=== PATIENT | male | born 1985 | race Caucasian/White ===

== ENCOUNTER 2024-04-22 17:56 | Emergency (ER) | payer SELFPAY ==
--- NOTE | ~2024-04-22 | XR_ITS ---
HISTORY: right sided rib pain, cough COMPARISON: None TECHNIQUE: 3 views of the right ribs were performed along with a PA and lateral examination of the ch est FINDINGS: The cardiomediastinal silhouette is unremarkable. The lungs are clear. No acute displaced fracture is appreciated. Bone mineralization is age-appropriate. IMPRESSION: No acute displaced right-sided rib fracture is detected. The lungs are clear Reviewed, dictated and finalized at location A. L HARDENER
--- OUTSIDE RECORDS SUMMARY | 2024-04-22 17:59 | XMS_ITS | Clinical Summary ---
Author Organization [facility] Address Formerly [facility] [place] [address] Care Team Providers Care Urology Nurse Name Role Phone Unavailable Primary Care Provider Unavailabl e Social History Tobacco Use Types Packs/Day Years Used Date Smoking Tobacco: Never Assessed Sex and Gender Information Value Date Recorded Sex Assigned at Not on file Legal Sex Male 7:26 AM CDT Gender Identity Not on file Sexual Orientation Not on file Plan of Treatment Health Maintenance Due Date Last Done Comments Annual Physical 1989 Hepatitis C 02/12/2004 DTaP, Tdap and Td Vaccines ( 1 - Tdap) 2005 Hepatitis B Vaccines (1 of 3 - 19+ 3-dose series) 2005 COVID-19 Vaccine (2023-2 5 season) 2023 Influenza Adult (#1) 2023 HPV Vaccines Aged Out No longer eligi ble based on patient's age to complete this topic Meningococcal B Vaccine Aged Out No l onger eligible based on patient's age to complete this topic Meningococcal Vaccine Aged Out No kelby dayana eligible based on patient's age to complete this topic Pneumococcal Vaccine: Pediat rics (0 to 5 Years) and At-Risk Patients (6 to 64 Years) Aged Out No longer eligible b ased on patient's age to complete this topic RSV Immunizations Under 20 Months Aged Out No longer eligible based on patient's age to complete this topic
--- OUTSIDE RECORDS SUMMARY | 2024-04-22 17:59 | XMS_ITS | Data Portability ---
Author Organization [place] - [facility] [employer], Main Office Address [address] [place] [address] Care Team Providers Care Circuitry Negative Inspector Name Role Phone KIMMIE LEVYA Pulmonary Function Technician Assessment Encounter Date Assessment Date Assessment LastModified by Organization Details LastModified Time 11/23/2023 11/23/2023 Assessment: Persistent early REM onset Mod OSAHS, AHI = 17 (+) LUCAS PLMD B12 deficiency CKD Plan: The following were reviewed and explained to the patient: Chest 1 view 06/09/23 no abnormality [facility] ED note 06/09/23 exertional chest pain and dyspnea, aspirin and nebulization did not help, O2 sat on RA 91-98%, discharged on prednisone and albuterol HFA Dr[facility] note 06/19/23 Claritin and Medrol pack [facility] hospitalization 06/25/23 - 06/26/23 observation for (+) metapneumovirus & hypoxemia Chest CT 06/25/23 no P. E., (+) bronchial wall thickening 2-D echocardiogram 06/25/23 mild MD, EF 64% Lab data 07/18/23 (+) LUCAS Esophagram 07/12/23 hiatal hernia, distal esophageal dilatation PFT 07/18/23 nl FEV1/FVC, FEV1 4.04 L (113%), BD 70 mL = 2%, TLC 6.25 L (103%), RV 1.15 L (67%), DLCO 79%, DLCO/VA 91% Methacholine challenge 10/31/23 negative methacholine challenge up to level 5 [facility] diagnostic sleep study 08/31/23 sleep onset = 9 minutes, REM onset = 73 minutes, AHI = 17, supine AHI = 54, PLMI = 0.0 [facility] titration sleep study 10/23/23 sleep onset = 1 minute, REM onset = 45 minutes, Respironics small DreamWear nasal mask @ 6-7 cmH2O, PLMI = 9 BUN 10/31/23 20 mg% Creatinine 10/31/23 1.33 mg% B12 10/31/23 363 pg/mL Non-pharmacologic therapy options for periodic limb movement disorder include avoidance of aggravating drugs and substances, mental alerting activities, short daily hemodialysis for patients in renal failure, exercise, leg massage, stretching calf muscles, use of a weighted blanket and applied heat. Patient will cut down on caffeine intake. Vitamin E, RBC folate, Iron, TIBC, Ferritin, ESR, Magnesium, Hgb and Hct levels are within normal limits. Patient will inquire with PCP whether or not he will need a nephrology consultation for the CKD. His BUN and creatinine were also elevated on 09/30/23. Patient will take B12 1 mg daily to keep the levels > 400 pg/ml. We will hold off on dopaminergic therapy for now. Educated the patient on problems and solutions associated with positive airway pressure (PAP) use. Difficulty tolerating pressure, mask leaks, intolerance of interface, nasal congestion, claustrophobic response, dry mouth, and unintentional mask removal during sleep were covered. Patient has some difficulty tolerating pressure. Patient is advised to practice wearing PAP daily while awake, lower pressure with or without sleeping on sides, activate PAP ramp feature, have blower checked to make sure pressure is set as prescribed and return to sleep center for consideration of auto-adjusting PAP therapy. Patient will dial down on heated humidification to reduce condensation. Patient will use hose cover or tubing wrap if problem persists. Prescription for tubing wrap or hose cover given. ResMed Air Sense 11 auto set unit with heated humidifier, supplies and Respironics small DreamWear nasal mask @ 6-7 cmH2O ordered. Further titration will be based on clinical response. Provided the patient with a list of local home care stores where positive airway pressure (PAP) units, accoutrement, and services are available. Home care store selection is based on patient's insurance carrier. Patient will setup an appointment with [facility] for supplies and pressure adjustments. A major predictor of success with use of PAP is follow-up with both the respiratory supplier and the treating physician. The respiratory supplier optimally will follow-up within two weeks after starting use while the treating physician optimally will follow-up within 90 days after starting therapy to assess adherence and effectiveness of treatment. The download results can show the treating physician information about adherence to treatment, residual AHI while on treatment and presence of large mask leakage. This information is especially helpful if the patient has residual sleepiness despite treatment. We discussed with the patient the impact of weight on: Sleep disordered breathing GEORGIE We discussed with the patient the benefit of PAP therapy on: Sleep disordered breathing Depression GEORGIE Educated the patient on sleep hygiene measures. Relaxing rituals to rest easy, understanding foods with positive and negative impact on sleep, creating a peaceful sleep environment, timing of exercise, using herbal sleep aids, and practicing sleep-friendly meditation were covered. To determine how much sleep is needed, the patient will assess where he falls on the spectrum, examine what lifestyle factors such as work schedules and stress are affecting the quality and quantity of sleep. In general, adults need 7-9 hours of sleep. Educated the patient regarding foods that promote sleep. These include but are not limited to cherries, bananas, toast, oatmeal, and warm milk. Educated the patient regarding foods and drinks to avoid before bedtime. These include but are not limited to aged cheese, chocolate, spicy foods, tomato-based sauces, soy, ginseng tea and processed meat. Advised to continue not to smoke. Continue albuterol HFA as needed only for bronchitic episode. Ressurance provided that he doesn't have asthma. The patient does not know how to accurately administer the inhaler. Today, the patient was shown how to take this medication. The proper technique for delivering this medication was instructed. The patient expressed a clear understanding and demonstrated back how to use this medication. Without the proper technique, the patient will not reap the benefits of the treatment as the contents of the inhaler will not reach the lower airways as intended to be. Adherence to therapy is advocated. Nonadherence may lead to treatment failure, further progression of the condition, and other complications. Hospitals admissions are often the result of individuals not taking prescription medications accurately. Alternatively, greater adherence to medication regimens have shown to lower rates of hospitalization and decrease total medical costs in patients with chronic medical conditions. Advocated influenza vaccination annually and pneumonia vaccination in 2050. Advocated weight loss through diet and exercise. Patient's ideal body weight according to height and gender is up to 160 lbs. Encouraged patient to adjust caloric intake to maintain/achieve ideal body weight, emphasizing on fruits, vegetables, whole grains, and fat-free or low-fat products. These include lean meats, poultry, fish, beans, eggs, and nuts and foods that are low in saturated fats, trans-fats, cholesterol, salt (sodium), and glycemic index. Stressed the importance of regular exercise up to the patient's capacity limits. In this case, we recommend 20 min daily walking, 2 days a week of resistance training. Patient to monitor BP daily and bring records to PCP for further management. Follow-up: 3 months, February 2024 Not available 11/23/2023 15:20:45 12/07/2023 12/07/2023 10/10/2023: A1C 5.4 VIT D 29.5 Gluc 114, BUN 20, Cr 1.35, GFR 50, ALT 69 TG 233 11/08/2023: Hep panel/GGT: Neg Not available 12/07/2023 17:30:29 02/26/2024 02/26/2024 Assessment: Persistent early REM onset Mod OSAHS, AHI = 17 (+) LUCAS PLMD B12 deficiency CKD Plan: The following were reviewed and explained to the patient: Chest 1 view 06/09/23 no abnormality [facility] note 06/09/23 exertional chest pain and dyspnea, aspirin and nebulization did not help, O2 sat on RA 91-98%, discharged on prednisone and albuterol HFA Dr. Rosa [facility] note 06/19/23 Claritin and Medrol pack [facility] hospitalization 06/25/23 - 06/26/23 observation for (+) metapneumovirus & hypoxemia Chest CT 06/25/23 no P. E., (+) bronchial wall thickening 2-D echocardiogram 06/25/23 mild MD, EF 64% Lab data 07/18/23 (+) LUCAS Esophagram 07/12/23 hiatal hernia, distal esophageal dilatation PFT 07/18/23 nl FEV1/FVC, FEV1 4.04 L (113%), BD 70 mL = 2%, TLC 6.25 L (103%), RV 1.15 L (67%), DLCO 79%, DLCO/VA 91% Methacholine challenge 10/31/23 negative methacholine challenge up to level 5 [facility] diagnostic sleep study 08/31/23 sleep onset = 9 minutes, REM onset = 73 minutes, AHI = 17, supine AHI = 54, PLMI = 0.0 [facility] titration sleep study 10/23/23 sleep onset = 1 minute, REM onset = 45 minutes, Respironics small DreamWear nasal mask @ 6-7 cmH2O, PLMI = 9 BUN 10/31/23 20 mg% Creatinine 10/31/23 1.33 mg% B12 10/31/23 363 pg/mL B12 01/23/24 558 pg/mL Non-pharmacologic therapy options for periodic limb movement disorder include avoidance of aggravating drugs and substances, mental alerting activities, short daily hemodialysis for patients in renal failure, exercise, leg massage, stretching calf muscles, use of a weighted blanket and applied heat. Patient will cut down on caffeine intake. Vitamin E, RBC folate, Iron, TIBC, Ferritin, ESR, Magnesium, Hgb and Hct levels are within normal limits. Patient will inquire with PCP whether or not he will need a nephrology consultation for the CKD. His BUN and creatinine were also elevated on 09/30/23. Patient will continue B12 1 mg but decrease from daily to twice weekly to keep the levels > 400 pg/ml. We will hold off on dopaminergic therapy for now. PAP compliance downloaded and interpreted x 20 minutes. Data reviewed and explained to the patient. Average apnea/hypopnea index (AHI) is 3.6. Patient used PAP > 4 hours 91% of the time. PAP is set at 6-7 cmH2O. PAP will remain at 6-7 cmH2O. Oxygen supplementation: none Keep ramp off. Keep EPR off. Keep humidifier level at 4. Keep tube temperature at 76 F. Patient is benefiting from PAP therapy. Encouraged patient to maintain PAP use more than 70% of the time. Statement of PAP use and benefits will be sent to the home care store. Educated the patient on problems and solutions associated with positive airway pressure (PAP) use. Difficulty tolerating pressure, mask leaks, intolerance of interface, nasal congestion, claustrophobic response, dry mouth, and unintentional mask removal during sleep were covered. Patient has some difficulty tolerating pressure. Patient is advised to practice wearing PAP daily while awake, lower pressure with or without sleeping on sides, activate PAP ramp feature, have blower checked to make sure pressure is set as prescribed and return to sleep center for consideration of auto-adjusting PAP therapy. Patient will dial down on heated humidification to reduce condensation. Patient will use hose cover or tubing wrap if problem persists. Prescription for tubing wrap or hose cover given. ResMed Air Sense 11 auto set unit with heated humidifier, supplies and Respironics small DreamWear nasal mask @ 6-7 cmH2O ordered. Further titration will be based on clinical response. Provided the patient with a list of local home care stores where positive airway pressure (PAP) units, accoutrement, and services are available. Home care store selection is based on patient's insurance carrier. Patient will setup an appointment with [facility] for supplies and pressure adjustments. A major predictor of success with use of PAP is follow-up with both the respiratory supplier and the treating physician. The respiratory supplier optimally will follow-up within two weeks after starting use while the treating physician optimally will follow-up within 90 days after starting therapy to assess adherence and effectiveness of treatment. The download results can show the treating physician information about adherence to treatment, residual AHI while on treatment and presence of large mask leakage. This information is especially helpful if the patient has residual sleepiness despite treatment. We discussed with the patient the impact of weight on: Sleep disordered breathing GEORGIE We discussed with the patient the benefit of PAP therapy on: Sleep disordered breathing Depression GEORGIE Educated the patient on sleep hygiene measures. Relaxing rituals to rest easy, understanding foods with positive and negative impact on sleep, creating a peaceful sleep environment, timing of exercise, using herbal sleep aids, and practicing sleep-friendly meditation were covered. To determine how much sleep is needed, the patient will assess where he falls on the spectrum, examine what lifestyle factors such as work schedules and stress are affecting the quality and quantity of sleep. In general, adults need 7-9 hours of sleep. Educated the patient regarding foods that promote sleep. These include but are not limited to cherries, bananas, toast, oatmeal, and warm milk. Educated the patient regarding foods and drinks to avoid before bedtime. These include but are not limited to aged cheese, chocolate, spicy foods, tomato-based sauces, soy, ginseng tea and processed meat. Advised to continue not to smoke. Continue albuterol HFA as needed only for bronchitic episode. Ressurance provided that he doesn't have asthma. The patient does not know how to accurately administer the inhaler. Today, the patient was shown how to take this medication. The proper technique for delivering this medication was instructed. The patient expressed a clear understanding and demonstrated back how to use this medication. Without the proper technique, the patient will not reap the benefits of the treatment as the contents of the inhaler will not reach the lower airways as intended to be. Adherence to therapy is advocated. Nonadherence may lead to treatment failure, further progression of the condition, and other complications. Hospitals admissions are often the result of individuals not taking prescription medications accurately. Alternatively, greater adherence to medication regimens have shown to lower rates of hospitalization and decrease total medical costs in patients with chronic medical conditions. Advocated influenza vaccination annually and pneumonia vaccination in 2050. Advocated weight loss through diet and exercise. Patient's ideal body weight according to height and gender is up to 160 lbs. Encouraged patient to adjust caloric intake to maintain/achieve ideal body weight, emphasizing on fruits, vegetables, whole grains, and fat-free or low-fat products. These include lean meats, poultry, fish, beans, eggs, and nuts and foods that are low in saturated fats, trans-fats, cholesterol, salt (sodium), and glycemic index. Stressed the importance of regular exercise up to the patient's capacity limits. In this case, we recommend 20 min daily walking, 2 days a week of resistance training. Patient to monitor BP daily and bring records to PCP for further management. Follow-up: 6 months, August 2024 Not available 02/26/2024 16:07:27 04/04/2024 04/04/2024 10/10/2023: A1C 5.4 VIT D 29.5 Gluc 114, BUN 20, Cr 1.35, GFR 50, ALT 69 TG 233 11/08/2023: Hep panel/GGT: Neg 03/25/2024: A1C 5.5 Gluc 103, BUN/Cr./GFR 20/1.42/56 TG 168 Not available 04/03/2024 16:19:26 Plan of Treatment Reminders Order Date Submit Date Provider Last Modified By Organization Details Last Modified Time Details Appointments Any 30 2024 02:30P Wendie El MD Not available Not available Not available Any 15 2024 04:30Brandon coffman MD Not available Not available Not available Lab vitamin B12, serum 2023 024 [email or web address] 2 [facility] [place], [address] [place], [address], 02/29/2024 14:52:32 lipid panel, serum 2023 024 [facility], [address] [place], [address], 03/25/2024 18:49:09 CMP, serum or plasma 2023 024 [facility], [address] [place], [address], 03/25/2024 18:49:15 CBC w/ auto diff 2023 024 [facility], [address] [place], [address], 03/25/2024 18:26:10 TSH + free T4, serum 2023 024 [email or web address] [facility], [place], [facility], [address] [place], [address], 01/03/2024 08:54:49 microalbu min, urine 2023 024 [facility], [address] [place], [address], 03/25/2024 18:33:45 HbA1c (hemoglob in A1c), blood 2023 024 [facility], [place], [address] [place], [address], 01/03/2024 08:51:42 vitamin D, 25-hydrox y, total, serum 2023 024 [email or web address] [facility] [place], [facility], [address] [place], [address], 01/03/2024 08:55:07 vitamin B12 + folate, serum or blood [address] Outpatient Lab, [address] [place], [address], 01/03/2024 08:54:58 vitamin B12, serum 2023 025 [email or web address] [facility] [place], [address] [place], [address], 02/26/2024 16:03:28 testoster one, free + total, serum 2024 025 RHEA [facility], [place], [facility], [address] [place], [address], 04/11/2024 04:07:31 lipid panel, serum [address] Out[facility] Lab, [address] [place], [address], 04/04/2024 17:39:31 CMP, serum or plasma [address] [facility], [address] [place], [address], 04/04/2024 17:39:31 CBC w/ auto diff [address] Out[facility] Lab, [address] [place], [address], 04/04/2024 17:39:32 TSH + free T4, serum [address] Out[facility] Lab, [address] [place], [address], 04/04/2024 17:39:32 microalbu min, urine [address] Out[facility] Lab, [address] [place], [address], 04/04/2024 17:39:30 HbA1c (hemoglob in A1c), blood [address] Outpatient Lab, [address] [place], [address], 04/04/2024 17:39:31 vitamin D, 25-hydrox y, total, serum [address] Out[facility] Lab, [address] [place], [address], 04/04/2024 17:39:32 vitamin B12 + folate, serum or blood [address] [facility], [address] [place], [address], 04/04/2024 17:39:32 Referral gastroent erologist referral - Please call patient to schedule. 2023 024 Lizette Curtis MD, [address] [facility], [address], [place], [address], 01/11/2024 08:13:12 rheumatol ogist referral 2023 024 [email or web address] Abdullahi Neil DO, [address] [facility], [address], [place], [address], 12/11/2023 16:08:08 cardiolog ist referral 2023 024 [place], [address], [place], [address], 12/11/2023 16:08:07 nephrolog ist referral 2023 024 Len Horan MD (Nephrology, [address], [address], [place], [address], 12/11/2023 16:08:41 gastroent erologist referral - Please call patient to schedule. 2024 025 [email or web address] Lizette Curtis MD, [address], [address], [place], [address], 04/04/2024 17:40:17 cardiolog ist referral 2024 025 [email or web address] [place], [address], [place], [address], 04/04/2024 17:40:17 nephrolog ist referral 2024 025 [email or web address] Lne Horan MD (Nephrology, [address], [address], [place], [address], 04/04/2024 17:40:56 Procedures None recorded. Surgeries None recorded. Imaging None recorded. Medication Orders cyanocoba johanna (vit B-12) 1,000 mcg tablet 2023 024 [id number], [address], [place], [address], 12/07/2023 17:15:45 fenofibra te 160 mg tablet 2023 024 [id number], [address], [place], [address], 12/07/2023 17:50:42 cyanocoba johanna (vit B-12) 1,000 mcg tablet 2023 024 [id number], [address], [place], [address], 02/26/2024 16:03:30 sildenafi l 50 mg tablet 2024 025 [id number], [address], [place], [address], 04/04/2024 17:36:55 amoxicill in 875 mg-potass ium clavulana te 125 mg tablet 2024 025 [facility] #[id number], [address], [place], [address], 04/17/2024 16:50:19 Flonase Allergy Relief 50 mcg/actua tion nasal spray,zia pension 2024 025 [facility] #[id number], [address], [place], [address], 04/17/2024 16:50:20 Zyrtec 10 mg tablet 2024 025 [id number], [address], [place], [address], 04/17/2024 16:50:20 Patient TargetsNo targets recorded. Patient InstructionsNo instructions recorded. 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 Referring Physician: Saul Downs Medicine, Encounter Date: 12/07/2023 Component Prep Operator Referral for Ch ronic kidney disease Referring Physician: Mendoza Bedolla [facility], Encounter Date: 12/07/2023 Corridor Redevelopment Manager Referral for Ca rdiovascular stress test abnormal Referring Physician: Saul Downs Medicine, Encounter Date: 04/04/2024 Sumo Wrestler Referral for Steatosis of liver Please call patient to schedule. Referring Physician: Saul Downs Medicine, Encounter Date: 04/04/2024 Component Prep Operator Referral for Ch ronic kidney disease Referring Physician: Saul Downs Medicine, Encounter Date: 04/04/2024 Results Created Date Observation Date Name Description Value Unit Range Abnormal Flag Note LastModifiedBy Organization Detail LastModifiedTime 10/27/19 24 10/23/2023 polys omnog eloise, titra tion study No observ ation record ed. [facility] [address] [place], [address], 10/27/2023 16:07:44 11/06/19 24 10/31/2023 metha choli ne chall enge* No observ ation record ed. [facility] ([facility]) [address] [place], [address], 11/06/2023 12:21:27 11/08/19 24 11/08/2023 US, abdom en, limit ed GATEMA Y [facility] [address] [place] [address] [id number] [id number] Patien t Name: DAYANARAASHLEY WOODS Access ion #: [id number] Sex: M : 1984 6 Dictat ed By: Chirag Lima Attend ing Physic jai: TRACEE MEREDITH Orderi mikey Physic jai: TRACEE MEREDITH Exam Date: 2023 07:35 AM Exam Name: US ABDOME N SINGLE ORGAN Admitt ing Diagno sis(es ): INDICA TION: Pain. TECHNI QUE: Multip le real-t vicky sonogr aphic images of the abdome n were obtain ed. COMPAR GERARD: None FINDIN GS: The liver is homoge nous in echoge nicity . Hepati c steato sis. No intrah epatic biliar y ductal dilata tion is noted. The gallbl adder wall measur es 0.2 cm and is unrema rkable . No gallst ones or sludge is seen. The common duct measur es 0.3 cm and is unrema rkable . No perich olecys tic fluid is noted. 3mm gallbl adder polyp. The right kidney measur es 10cm. No hydron ephros is. T The pancre as is not well visual ized due to obscur ation from bowel gas. The visual ized portio ns of the IVC and aorta are grossl y unrema rkable . IMPRES CHUCKY: 1. Hepati c steato sis. Electr onical ly Signed by: Chirag Lima at 2023 08:47: 03 AM Page 1 INTERFACE [facility] (Imaging) [address], [place], [address], 11/08/2023 09:49:18 03/27/19 25 03/21/2024 CT, coron alyson calci um score No observ ation record ed. [email or web address] [facility] [address], [place], [address], 04/18/2024 10:10:10 03/27/19 25 03/21/2024 imagi ng/di agnos tic resul t No observ ation record ed. RHEA [facility] [address], [place], [address], 03/27/2024 13:45:01 Result Notes None recorded. Problems Name Problem SNOMED Code Status Onset Date Resolution Date Notes Provider Name and Address Organization Details Recorded Time Obstructive sleep apnea syndrome 58872898 Active 2023 Vj El MD [address], [address], [place], [address], [employer] 4 09:41:20 Hiatal hernia 05462551 Active 2023 Mendoza coffman MD [address], [address], [place], [address], [employer] 4 16:52:18 Hyperlipidemia 85457556 Active 2023 Mendoza coffman MD [address], [place], [address], [employer] 4 16:55:46 Serum vitamin B12 below reference range 193105338 Active 2023 Mendoza coffman MD [address], [address], [place], [address], [employer] [place] Contractually [facility] 4 16:58:00 Vitamin D deficiency 06080010 Active 2023 Mendoza coffman MD [address], [address], [place], [address], [employer] S [email or web address] [facility] 4 16:58:07 Anti-nuclear factor detected 810259317 Active 2023 Mendoza coffman MD [address], [place], [address], [employer]) [place] Contract[place] [facility] 4 16:58:24 Chronic kidney disease 938349196 Active 2023 Luz Wallis MA [facility], [place] - [place] Contract[place] [facility] 4 16:36:26 Periodic limb movement disorder 059116364 Active 2023 Vj El MD [address], [address], [place], [address], [employer] [facility] Contractually [facility] 4 11:01:14 Vitamin B12 deficiency (non anemic) 41589212 Active 2023 Vj El MD [address], [address], [place], [address], [employer] [place] Contract[place] [facility] 4 15:06:51 Steatosis of liver 150588526 Active 2023 Mendoza coffman MD [address], [address], [place], [address], [facility] [employer] [place] Contractually [facility] 4 17:49:42 Dyspnea on exertion 86769077 Active 2024 Mendoza coffman MD [address], [address], [place], [address], [place] [facility] 5 16:13:36 Abdominal discomfort 40971083 Active 2024 Mendoza coffman MD [address], [address], [place], [address], [employer] [facility] 5 16:13:36 Cardiovascular stress test abnormal 651699092 Active 2024 Mendoza coffman MD [address], [address], [place], [address], [employer] [facility] 16:13:36 Hyperglycemia 49852226 Active 2024 Mendoza coffman MD [address], [address], [place], [address], [employer] [facility]ICAL [facility] 5 16:13:36 Male hypogonadism 34458168 Active 2024 Mendoza coffman MD [address], [address], [place], [address], [employer] [facility] 5 17:32:52 Erectile dysfunction 305784233 Active 2024 Mendoza coffman MD [address], [place], [address], [employer] [facility] 5 17:35:06 Upper respiratory infection 45854262 Active 2024 Mendoza coffman MD [address], [place], [address], [employer] [facility] 16:39:56 Notes:B12 01/23/24 558 pg/mL 1st CPAP compliance CPAP set up Medical History: Depression Influenza infections 02/2022, 05/2023 Metapneumovirus infection 06/2023 IgE 24 IU/mL Eosinophils 60/uL AAT PiMM 145 mg% (+) LUCAS Persistent early REM onset Obesity with mod complex SAHS, AHI = 17, 08/31/23, on autoCPAP c/o IVRC Hypertriglyceridemia EF 64% Hiatal hernia with GEORGIE Hepatic steatosis CKD B12 deficiency PLMD Procedure History: Vasectomy 2017 Right lateral epicondylitis surgery 2019 Right radial tunnel release 2021 Bilateral LASIK eye surgery 2022 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 Procedures Surgical History Date Name Laterality Status Provider Name and Address Organization Details Recorded Time Eye Surgery completed Emiilano Donovan CMA [place] Contract[place] [facility] 07/03/2023 09:34:03 vasectomy completed Not Available [facility] 0 05/11/2022 15:13:46 procedure on elbow completed Not Available [facility] 05/11/2022 15:13:46 Imaging Results Imaging Date Name Status LastModified by Organization Details LastModified Time 10/23/2023 polysomnogram, titration study completed [facility] [address] [place], [address], 10/27/2023 16:07:44 10/31/2023 methacholine challenge* completed [facility] ([facility] Sched[facility]) [address] [place], [address], 11/06/2023 12:21:27 11/08/2023 US, abdomen, limited active [facility] (Imaging) [address] [place], [address], 11/08/2023 09:49:18 03/21/2024 CT, coronary calcium score completed [address] [facility] [address], [place], [address], 04/18/2024 10:10:10 03/21/2024 imaging/diagnost ic result active [facility] [address], [place], [address], 03/27/2024 13:45:01 Procedure Notes None recorded. Medical Equipment None Reported. Allergies No known drug allergies Medications Name Sig Start Date Stop Date Status Note LastModified by Organization Details LastModified Time amoxicillin 500 mg capsule TK ONE C PO TID active Not Available Not Available No t Available venlafaxine ER 75 mg capsule,ext ended release 24 hr TAKE ONE CAPSULE BY MOUTH EVERY DAY ALONG WITH 150 MG CAPSULE 07/02 completed Not Available Not Available Not Available sildenafil 50 mg tablet TAKE 1 TABLET TWICE A WEEK BY ORAL ROUTE FOR 90 DAYS. active Not Available Not Available No t Available cetirizine 10 mg tablet TAKE 1 TABLET BY MOUTH EVERY DAY NEEDED FOR 90 DAYS active Not Available Not Available No t Available azithromyci n 250 mg tablet Take 2 TABLET EVERY DAY by oral route for 1 day. then 1 tab a day for 4 days 06/24 completed Not Available Not Available Not Available ibuprofen 800 mg tablet 06/30 completed Not Available Not Available Not Available ofloxacin 0.3 % eye drops INSTILL 1 DROP INTO BOTH EYES 4 TIMES DAILY X7 DAYS AFTER SURGERY 07/02 completed Not Available Not Available Not Available benzonatate 200 mg capsule TAKE 1 CAPSULE BY MOUTH THREE TIMES A DAY NEEDED FOR COUGH 06/24 completed Not Available Not Available Not Available hydrocodone 5 mg-acetamin ophen 325 mg tablet TAKE 1 TABLET BY MOUTH EVERY 6 HOURS NEEDED FOR PAIN 06/26 completed Not Available Not Available Not Available meloxicam 15 mg tablet TAKE 1/2 TABLET BY MOUTH TWICE DAILY 07/02 completed Not Available Not Available Not Available ondansetron HCl 4 mg tablet active Not Available Not Available Not Available prednisone 20 mg tablet TAKE 2 TABLETS BY MOUTH ONCE DAILY 07/02 completed Not Available Not Available Not Available venlafaxine ER 150 mg capsule,ext ended release 24 hr TAKE 1 CAPSULE BY MOUTH EVERY DAY ALONG WITH 75 MG CAPSULE 07/02 completed Not Available Not Available Not Available cyanocobala min (vit B-12) 1,000 mcg tablet Take 1 tablet twice a week by oral route. 2023 active Not Available Not Available Not Avai lable phentermine 37.5 mg tablet Take 1 tablet every day by oral route. 07/02 completed Not Available Not Available Not Available omeprazole 40 mg capsule,del ayed release TAKE 1 CAPSULE BY MOUTH EVERY DAY BEFORE A MEAL 04/04 completed Not Available Not Available Not Available tramadol 50 mg tablet TAKE 1 TABLET BY MOUTH EVERY 6 HOURS NEEDED active Not Available Not Available No t Available amoxicillin 500 mg tablet 06/02 completed Not Available Not Available Not Available Zofran 8 mg tablet Take 1 tablet every 8 hours by oral route as needed for 2 days. 06/02 completed Not Available Not Available Not Available amoxicillin 875 mg tablet Take 1 tablet every 12 hours by oral route for 7 days. 06/24 completed Not Available Not Available Not Available prednisolon e acetate 1 % eye drops,suspe nsion INSTILL 1 DROP INTO BOTH EYES 3 TIMES DAILY X14 DAYS AFTER SURGERY 07/02 completed Not Available Not Available Not Available pantoprazol e 40 mg tablet,annia yed release active Not Available Not Available Not Available oseltamivir 75 mg capsule TAKE 1 CAPSULE BY MOUTH TWICE A DAY FOR 5 DAYS 06/24 completed Not Available Not Available Not Available codeine 10 mg-guaifene sin 100 mg/5 mL oral liquid TAKE 10 ML BY MOUTH EVERY 6 HOURS FOR 5 DAYS 07/17 completed Not Available Not Available Not Available ergocalcife rol (vitamin D2) 1,250 mcg (50,000 unit) capsule 1 CAPSULE BY MOUTH ONCE WEEKLY active Not Available Not Available No t Available diazepam 10 mg tablet Take 1 tablet(s) one hour before the procedure . 06/02 completed Not Available Not Available Not Available methylpredn isolone 4 mg tablets in a dose pack TAKE PER [employer]SEPACK INSTRUCTI ONS. 07/02 completed Not Available Not Available Not Available albuterol sulfate HFA 90 mcg/actuati on aerosol inhaler INHALE 2 PUFFS EVERY 4 HOURS NEEDED FOR RESPIRATO RY PROBLEMS active Not Available Not Available No t Available fluticasone propionate 50 mcg/actuati on nasal spray,suspe nsion SPRAY 1 SPRAY NASALLY EVERY DAY active Not Available Not Available No t Available naproxen 500 mg tablet TAKE 1 TABLET BY MOUTH TWICE A DAY WITH FOOD 07/02 completed Not Available Not Available Not Available amoxicillin 875 mg-potassiu m clavulanate 125 mg tablet TAKE 1 TABLET BY MOUTH TWICE DAILY WITH MORNING AND EVENING MEAL FOR 7 DAYS active Not Available Not Available No t Available neomycin-po lymyxin-hyd rocort 3.5 mg-10,000 unit/mL-1 % ear drops,susp INSTILL 2 DROPS INTO BOTH EARS 4 TIMES DAILY 07/17 completed Not Available Not Available Not Available bupropion HCl XL 300 mg 24 hr tablet, extended release TAKE 1 TABLET BY MOUTH EVERY DAY active Not Available Not Available No t Available bupropion HCl XL 150 mg 24 hr tablet, extended release TAKE 1 TABLET BY MOUTH EVERY DAY active Not Available Not Available No t Available fenofibrate 160 mg tablet Take 1 tablet every day by oral route for 90 days. active Not Available Not Available No t Available fenofibrate nanocrystal lized 145 mg tablet Take 1 tablet every day by oral route. 12/06 completed Not Available Not Available Not Available cholecalcif leonardo (vitamin D3) 1,250 mcg (50,000 unit) capsule TAKE 1 CAPSULE BY MOUTH ONCE WEEKLY 04/04 completed Not Available Not Available Not Available venlafaxine ER 150 mg tablet,exte nded release 24 hr 1 po qday with 75 mg tab 08/20 completed Not Available Not Available Not Available venlafaxine ER 75 mg tablet,exte nded release 24 hr 1 po qday with 150 mg tab 08/20 completed Not Available Not Available Not Available Vitals Date Recorded Body height Body mass index (BMI) Body weight Body temperature Heart rate Oxygen saturation Oxygen saturation in Arterial blood by Pulse oximetry Systolic blood pressure Diastolic blood pressure Provider Name and Address Organization Details Last Updated DateTime 4 170.18 cm 34.8 kg/m2 104345. 51 g 98.2 [degF] 75 /min 95 % 95 % 126 mm[Hg] 74 mm[Hg] Emiliano Donovan CMA [facility] [employer] 15:05:48 Date Recorded Heart rate Respiratory rate Provider Cherise jeri and Address Organization Details Last Updated DateTime 11/23/2023 75 /min 14 /min Vj El MD [address] [facility], [facility] [address], [place], [address], [facility] [employer] 11/23/2023 15:25:19 Date Recorded Body height Body mass index (BMI) Body weight Body temperature Heart rate Systolic blood pressure Diastolic blood pressure Provider Name and Address Organization Details Last Updated DateTime 4 170.18 cm 36.3 kg/m2 703283. 43 g 97.5 [degF] 66 /min 122 mm[Hg] 70 mm[Hg] ALLAN Medel [facility] [employer] [facility] 17:12:04 Date Recorded Body height Body mass index (BMI) Body weight Body temperature Heart rate Oxygen saturation Oxygen saturation in Arterial blood by Pulse oximetry Systolic blood pressure Diastolic blood pressure Provider Name and Address Organization Details Last Updated DateTime 4 170.18 cm 35.9 kg/m2 764203. 65 g 98 [degF] 81 /min 98 % 98 % 122 mm[Hg] 72 mm[Hg] Loly Zelaya MA [facility] Contractually [facility] 4 15:46:31 Date Recorded Heart rate Respiratory rate Provider Cherise wilcox and Address Organization Details Last Updated DateTime 02/26/2024 81 /min 15 /min Vj El MD [address] [facility], [facility] [address], [place], [address], [facility] Contractually [facility] 02/26/2024 16:03:50 Date Recorded Body height Body mass index (BMI) Body weight Body temperature Heart rate Systolic blood pressure Diastolic blood pressure Provider Name and Address Organization Details Last Updated DateTime 5 170.18 cm 35.9 kg/m2 929019. 65 g 97.6 [degF] 84 /min 112 mm[Hg] 74 mm[Hg] ALLAN Medel [facility] Contractually [facility] 5 17:05:58 Date Recorded Body height Body mass index (BMI) Body weight Body temperature Heart rate Systolic blood pressure Diastolic blood pressure Provider Name and Address Organization Details Last Updated DateTime 5 170.18 cm 35.9 kg/m2 570535. 65 g 97.7 [degF] 84 /min 124 mm[Hg] 72 mm[Hg] Gretchen Shaw Partha [facility] 5 16:30:50 Social History Question Answer Notes LastModified by Organizat ion Details LastModified Time Tobacco Smoking Status Never Smoker Not Available [employer] 05/11/2022 15:13:42 Do You Have An Advance Directive? No Information not available 10/10/2023 What Is Your Level Of Alcohol Consumption? Occasional [email or web address] Information not available 07/03/2023 What Is Your Level Of Caffeine Consumption? Moderate Soda [email or web address] Information not available 07/03/2023 In The 14 Days Before Symptom Onset, Have You Had Close Contact With A [facility] COVID-[facility] While That Case Was Ill? No Information not available 07/18/2023 In The 14 Days Before Symptom Onset, Have You Had Close Contact With A Person Who Is Under Investigation For COVID-19 While That Person Was Ill? No Information not available 07/18/2023 Are You Currently Employed? Yes Information not available 07/18/2023 What Type Of Diet Are You Following? REGULAR Information not available 07/18/2023 What Is The Highest Grade Or Level Of School You Have Completed Or The Highest Degree You Have Received? [id number] Information not available 10/10/2023 Do You Have An Electrostatic Air Filter? 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 Unknown Information not available 10/10/2023 Are There Any Guns Present In Your Home? No Information not available 10/10/2023 Do You Have A Humidifier? No Information not available 07/18/2023 Where Do You Live? SingleLevelHouse Information not available 07/18/2023 Do You Have A Medical Power Of Modeling Agent? No Information not available 10/10/2023 Do You Have Moisture Problems In Your Home? No Information not available 07/18/2023 What Was The Date Of Your Most Recent Tobacco Screening? 04/17/2024 Information not available 04/17/2024 How Many Children Do You Have? 2 Information not available 07/18/2023 Do You Have Any Pets? Yes Information not available 07/18/2023 What Is Your Relationship Status? Information not available 07/18/2023 Do You Use Your Seat Belt Or Car Seat Routinely? Yes Information not available 07/18/2023 Do You Have Smoke And Carbon Monoxide Detectors In Your Home? Yes Information not available 07/18/2023 Are You Passively Exposed To Smoke? No Information not available 07/18/2023 Are There Any Smokers In Your House? No Information not available 10/10/2023 Do You Feel Stressed (tense, Restless, Nervous, Or Anxious, Or Unable To Sleep At Night)? [id number] Information not available 07/18/2023 Do You Use Any Illicit Or Recreational Drugs? No Information not available 07/18/2023 Do You Use Sunscreen Routinely? Yes Information not available 07/18/2023 Has Tobacco Cessation Counseling Been Provided? No N/a Information not available 10/10/2023 Have You Recently Traveled Abroad? No Information not available 07/18/2023 Do You Have Any Dietary Restrictions? No Information not available 07/18/2023 Do You Or Have You Ever Used Any Other Forms Of Tobacco Or Nicotine? No Information not available 10/10/2023 Sex: Male Functional Status Question Answer Note LastModified by Organizat ion Details LastModified Time What is your exercise level? Occasional Information not available 07/18/2023 Mental Status None recorded. Family History Relationship Description Onset Age of this Age Resolved Age Notes LastModified by Organization Details LastModified Time Paternal Grandfather Heart disease [id number] [id number] Not available 05/11/2022 15:13:48 Paternal Grandfather Diabetes mellitus [id number] Not available 05/11/2022 15:13:48 Father Diabetes mellitus [email or web address] [id number] Not available 05/11/2022 15:13:48 Maternal Grandfather Malignant tumor of colon dx 60s [email or web address] Not available 10/12 10:11:59 Father Congestive heart failure [email or web address] Not available 10/12 10:11:59 Father Myocardial infarction 65 Not available 04/04 17:02:36 Mother Congestive heart failure [email or web address] Not available 10/12 10:11:59 Notes:No prostate cancer Medical History Condition Response NERVE DISEASE N BLINDNESS N RHEUMATIC FEVER N KIDNEY STONES N BLADDER PROBLEMS N MRSA N OTHER # 1 N POLIO N LUNG DISEASE/DISORDER N HISTORY OF DRUG ABUSE N RADIATION / CHEMOTHERAPY N COPD N Other # 2 N BLOOD DISEASES N EAR OR HEARING PROBLEMS N MUMPS N SHINGLES N DEPRESSION (INCLUDING POST ) N BOWEL PROBLEMS N FAILED BACK SYNDROME N STROKE/TIA N ULCERS N BENIGN PROSTATIC HYPERPLASIA N MEASLES N HYPOTENSION N MYOCARDIAL INFARCTION N OBESITY N GERD/NAUSEA N ANEURYSM N URINARY/BLADDER/KIDNEY PROBLEMS N CORONARY ARTERY DISEASE (CAD) N Do you have Advance directive? N ADDICTION CONCERNS N Impotence N ENDOMETRIOSIS N USE OF BLOOD THINNERS N SKIN PROBLEMS N GASTROINTESTINAL DISORDER N PERIPHERAL VASCULAR DISEASE N MUSCLE,JOINT OR BONE PROBLEMS N GASTROINTESTINAL BLEEDING N BLOOD CLOTS N ASTHMA N CATARACTS N Abdominal Pain N ERECTILE DYSFUNCTION N ARTERIAL INSUFFICIENCY N VARICOSITIES N GI PROBLEMS N Low Testosterone N INFERTILITY N AIDS/HIV N CHEMOTHERAPY / RADIATION N LIVER DISEASE N MALE HYPOGONADISM N HYPERTENSION N Deficiency N TOURETTE'S N ANXIETY DISORDER N BLOOD TRANSFUSION N ANEMIA/BLOOD DISORDER N CHRONIC EAR INFECTIONS N TUBERCULOSIS N GLAUCOMA N FOOT PROBLEM N DIVERTICULITIS N SLEEP APNEA Y CHICKENPOX N ALLERGIES/HAYFEVER N BACK INJECTIONS N INFECTIOUS DISEASE N PROSTATE N HEART ARRHYTHMIA N ESRD N INSOMNIA N HIGH CHOLESTEROL / HYPERLIPIDEMIA N EYE PROBLEMS N HYPERTHYROIDISM N PVD N EDEMA N CHRONIC PAIN SYNDROME N HYPOTHYROIDISM N CAROTID BLOCKAGE N CONSTIPATION N BACK / NECK PROBLEMS N ATHEROSCLEROSIS N BREAST PROBLEMS N DIALYSIS N POLYCYSTIC OVARIES N ECZEMA N OSTEOPOROSIS N ARTHRITIS N APPENDICITIS N DIABETES, TYPE N BAD TEETH N VON WILLIBRAND'S DISEASE N ENT N HEARTBURN / REFLUX N GI N AUTISM SPECTRUM DISORDER (ASD) N POST LAMINECTOMY SYNDROME N HEPATITIS / LIVER DISEASE N GOUT N SLEEP DISORDER N ALZHEIMER'S DISEASE N Brain Problems N DEMENTIA N HERPES N SEIZURES/EPILEPSY N HEADACHES/MIGRAINES N VASCULAR DISEASE N PACEMAKER N DIZZINESS N HEART DISEASE/HEART PROBLEMS N KIDNEY DISEASE N MULTIPLE SCLEROSIS N NEUROPSYCHOLOGICAL N CANCER: SPECIFY N CARDIAC ARRHYTHMIA N ATRIAL FIBRILLATION N Gall Stones N PULMONARY EMBOLISM N AUTOIMMUNE DISEASE N Immunizations Vaccine Type Date Status Note Provider Nam e and Address Organization Details Recorded Time Influenza, split virus, trivalent, preservative 2 completed ALLAN Medel, [place] [facility] [employer] [facility] 04/04/2024 17:01:54 Influenza, split virus, quadrivalent, PF 7 completed Not Available [facility] 05/11/2022 15:18:34 Tdap 7 completed Not Available [facility] 05/11/2022 15:18:34 Past Encounters Encounter ID Performer Location Encounter Start Date Encounter Closed Date Diagnosis/Indication Diagnosis SNOMED-CT Code Diagnosis ICD10 Code Diagnosis Note [id number] [facility] [address] [address] 08/20/2020 00:00:00 08/20/2020 18:03:18 [id number] [facility] [place] [address] [place] [address] 08/25/2020 00:00:00 08/25/2020 08:58:46 [id number] [facility] [place] [address] [place] [address] 01/19/2021 00:00:00 02/02/2021 10:47:14 [id number] [facility] [place] [address] [place], [place] [address] 02/22/2022 00:00:00 02/22/2022 11:28:37 [id number] Ashanti Duggan MD [facility] [place] [address] [place] [address] 06/27/2023 16:26:44 06/27/2023 17:17:33 Serum creatinine above reference range 408919521 R79.89 Sleep apnea 95705652 G47 .30 has appt with pulmonolog ist [id number] Vj El MD [facility] [address] 07/03/2023 08:58:32 07/04/2023 08:51:24 Dyspnea on exertion 28772354 R06.09 R05.3 T78.40XA D89.9 [id number] Vj El MD [facility] [address] [address] 07/18/2023 09:53:15 07/18/2023 13:04:04 Sleep apnea 22779628 G47.30 G47.33 G47.36 G47.61 Dyspnea on exertion 6084 5006 R06.09 R05.3 [id number] Vj El MD [facility] [address] [address] 09/06/2023 08:54:39 09/07/2023 09:03:34 Dyspnea on exertion 05031985 R06.09 R05.3 Obstructiv e sleep apnea syndrome 47258690 G47.33 [id number] Mendoza garcia MD [facility] Internal [facility] [address] [facility], [address] [place] [address] 10/10/2023 16:00:17 10/10/2023 17:11:23 Screening - NAD 986734391 Z13.9 Get yearly flu shot,UTD on tdap 01/2017Can do COVID 19 vaccine and its boosters RTC in 3 months, do labs, ER if worse, he did verbalize his understand ing of the above Obstructiv e sleep apnea syndrome 08367345 G47.[address] El 09/06/2023 Is to get sleep study on 10/24/2023 Dyspnea on exertion 6084 5006 R06.09 S/p CT chest 06/25/2023 S/p d/c from [facility] on 06/26/2023 for hypoxemiaI s to get methacholi ne challange test on 10/31/[address] El 09/06/2023 Hiatal hernia 09184090 K 44.9 S/p barium swallowGet a referral to GI for EGD as there was esophageal dilatation Abdominal discomfort 433 58067 R10.9 Has noted some cramly abd discomfort , no N/V no D/C, normal appetiteWi ll get CT A/P Hyperglycemia 02653579 R 73.9 07/03/2023 : Dr Mathew c 116Get labs Hyperlipidemia 98317699 E78.5 07/03/2023 :TG 156Not on any medsGet labs Cardiovasc ular stress test abnormal 997910965 R94.[address] Alanis /p ECHO 06/25/2023 S/p heart monitor as per his historyKee p apt with Dr Kang on 10/27/2023 Serum cora min B12 below reference range 488866121 R79.89 Vitamin D deficiency 347 13241 E55.9 Anti-nucle ar factor detected 258466135 R76.[address] gist Dr Mayank Neil at [facility] told he did not have lupus or other auto immune disorder but was concerned for sarcoidosi sIs to see Dr El [id number] Vj El MD [facility] [address] 10/31/2023 10:10:55 11/01/2023 08:17:39 Obstructive sleep apnea syndrome 15350343 G47.33 Periodic l imb movement disorder 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 G47.61 D50.8 E83.42 [id number] Vj El MD [facility] [place] [address] 11/23/2023 14:53:17 11/24/2023 11:41:51 Obstructive sleep apnea syndrome 27414078 G47.33 Vitamin B1 2 deficiency (non anemic) 10914957 E53.8 [id number] Mendoza garcia MD [facility] [address] [place] [address] 1 12/07/2023 17:00:28 12/07/2023 17:55:57 Screening - NAD [id number] Z13.9 Get yearly flu shot,UTD on tdap 01/2017Can do COVID 19 vaccine and its boosters RTC in 3 months, do labs, ER if worse, he did verbalize his understand ing of the above Obstructiv e sleep apnea syndrome [id number] G47.[address] El 09/06/2023 Next apt 02/26/2024 Dyspnea on exertion 6084 5006 R06.09 On albuterolS /p CT chest 06/25/2023 S/p d/c from [facility] on 06/26/2023 for hypoxemiaI s to get methacholi ne challange test on 10/31/[address] El Hiatal hernia [id number] K 44.9 On omeprazole 40mg daily, take as needed 10/31/2023 Dr Goodrich/p barium swallowHas seen Dr Tim Abdominal discomfort 433 45319 R10.9 Has noted some cramly abd discomfort , no N/V no D/C, normal appetite CT A/P 10/20/2023 : Neg Hyperglycemia 46526352 R 73.9 07/03/2023 : Dr Quincy fernandez 116Get labs Hyperlipidemia 44910928 E78.5 07/03/2023 :TG 156Not on any medsGet labs OV 12/07/2023 :Get on fenofibrat e 160mg daily, he states that he will consider taking this, he does admit to excessive deli meats and processed foodsMore diet and exercise is neededGet labs Cardiovasc ular stress test abnormal [id number] R94.[address] Alanis /p ECHO 06/25/2023 S/p heart monitor as per his historyKee p apt with Dr Kang, last 10/27/2023 , next in 3 months Serum cora min B12 below reference range 480311711 R79.89 Vitamin D deficiency 347 23218 E55.9 Anti-nucle ar factor detected 125112656 R76.[address]ist Dr Mayank Neil at [facility] ([facility]) told he did not have lupus or other auto immune disorder but was concerned for sarcoidosi sIs to see Dr El Should see rheumatolo gy Chronic ki dney disease [id number] N18.9 Will repeat the labs, may need to see nephrology Steatosis of liver 1007 K76.0 liver 11/08/2023 : Hepatic steatosis. , should see GI [id number] Vj El MD [facility] [address] 02/26/2024 15:26:10 03/11/2024 11:58:09 Obstructive sleep apnea syndrome [id number] G47.33 Vitamin B1 2 deficiency (non anemic) 90668536 E53.8 [id number] Mendoza garcia MD [facility] [place] [address] 04/04/2024 16:34:03 04/04/2024 17:40:16 Screening - NAD [id number] Z13.9 Get yearly flu shot,UTD on tdap 01/2017Can do COVID 19 vaccine and its boosters RTC in 3 months, do labs, ER if worse, he did verbalize his understand ing of the above Obstructiv e sleep apnea syndrome 56299851 G47.[address] El 08/26/2024 Dyspnea on exertion 6084 5006 R06.09 On albuterolS /p CT chest 06/25/2023 S/p d/c from [facility] on 06/26/2023 for hypoxemiaI s to get methacholi ne challange test on 10/31/[address] El Hiatal hernia [id number] K 44.9 On omeprazole 40mg daily, take as needed 10/31/2023 Dr Goodrich/p barium swallowHas seen Dr Tim Abdominal discomfort 433 34583 R10.9 Has noted some cramly abd discomfort , no N/V no D/C, normal appetite CT A/P 10/20/2023 : Neg Hyperglycemia 67115194 R 73.9 07/03/2023 : Dr Quincy fernandez 116Get labs Hyperlipidemia 41983512 E78.5 07/03/2023 :TG 156Not on any medsGet labs OV 12/07/2023 :Get on fenofibrat e 160mg daily, he states that he will consider taking this, he does admit to excessive deli meats and processed foodsMore diet and exercise is neededGet labs OV 04/04/2024 :Does wellOn fenofibrat eGet labs Cardiovasc ular stress test abnormal 255322363 R94.39 Ca score: SLHV 03/21/[address] Alanis /brandon ECHO 06/25/2023 S/p heart monitor as per his historyDr Kang Serum cora min B12 below reference range 120685064 R79.89 Vitamin D deficiency 347 87753 E55.9 Anti-nucle ar factor detected 403983401 R76.[address] gist Dr Mayank Neil at [facility] ([facility]) told he did not have lupus or other auto immune disorder but was concerned for sarcoidosi sIs to see Dr El Should see rheumatolo gy, no more apts with Dr Neil Chronic ki dney disease [id number] N18.9 Will repeat the labs, may need to see nephrology Steatosis of liver 1007 K76.0 US liver 11/08/2023 : Hepatic steatosis. , should see GI Male hypogonadism 994654 06 E29.1 Low sex driveWants to get labs Erectile dysfunction 860 481759 F52.21 [id number] Mendoza garcia MD [facility] [address] [place] [address] 04/17/2024 15:33:33 04/17/2024 16:52:02 Upper respiratory infection 69507973 J06.9 Get on augmentin, flonase and zyrtecIsol ate, hydrate and ER if worse, he is very appreciati ve to this plan of care Health Concerns Section Related Observation LastModified by Organization Detai ls LastModified Time None Recorded Concern Status LastModified by Organization Details LastModified Time None Recorded Advance Directives Directive N: Payers Encounter Date Sequence Insurance Name Policy Number Policy Rodriguez Covered Member ID Rodriguez Member ID Guarantor Name 11/23/2023 1 [place] [id number] Ashley D Redd [id number] Ashley D Redd 12/07/2023 1 [place] [id number] Ashley D Redd [id number] Ashley D Redd 02/26/2024 1 [place] [id number] Ashley D Redd [id number] Ashley D Redd 04/04/2024 1 [place] [id number] Ashley D Redd [id number] Ashley D Redd 04/17/2024 1 [place] [id number] Ashley D Redd [id number] Ashley D Redd Notes Date Note Type Note Provider Name and Address Organization Details Recorded Time 11/23/2023 text/html Primary care/Ref erring provider: Demarcus Soriano MD Patient is here to go over his methacholine challenge testing as part of his shortness of breath evaluation/management. Initial development of shortness of breath: uration of shortness of breath: 6 monthsCondition of shortness of breath: improvedTiming of shortness of breath: noneFrequency: up to 3 times a dayLimits activities: yesAggravating factors: walking the dog, cutting grassAlleviating factors: rest Modified [employer] [place] (mMRC) Dyspnea Scale - Grade 1Grade 0 I only get breathless with strenuous exercise .Grade 1 I get short of breath when hurrying on the level or walking up a slight hill .Grade 2 I walk slower than people of the same age on the level because of breathlessness or have to stop for breath when walking at my own pace on the level .Grade 3 I stop for breath after walking about 100 yards or after a few minutes on the level .Grade 4 I am too breathless to leave the house or I am breathless when dressing . Treatment history: 06/09/23 aspirin and nebulization, prednisone and albuterol HFA06/19/23 Claritin and Medrol pack Other symptoms:Drooling: noDysarthria: noNeck pain: noOdynophagia: noDysphagia: noWeak mastication: noFacial weakness: noNasal speech: noProtruding tongue: noProductive cough: clearWheezing: noChest tightness: yesOrthopnea: noFrequent throat clearing or swallowing: noPalpitations: noHeartburn: noEdema: no Environmental exposures:Nicotine smoke: noPaint: noDye: noDust mites: yesMold: noDamp basement: noWood burning stove: noAnimal dander: dog and catCockroaches: noPollen: yesArsenic: noAsbestos: noBeryllium: noCadmium: noChromium: noCoal smoke: noDiesel fumes: noNickel: noSilica: noSoot: no During the [facility] diagnostic sleep study on 08/31/23, sleep onset = 9 minutes, REM onset = 73 minutes, AHI = 17, supine AHI = 54, PLMI = 0.0. During the [facility] titration sleep study on 10/23/23, sleep onset = 1 minute, REM onset = 45 minutes, PLMI = 9. The patient uses a ResMed AirSense 11 autoset unit with heated humidification. The patient does not need the ramp to start low and go up slowly on the pressure. There is no xerostomia in a.m. There is no hose/mask condensation with water. The patient wears a Respironics small DreamWear nasal mask without chin strap. There is no claustrophobia, no nostril/nose bridge irritation, no facial rash, no facial numbness, no nosebleeding. The patient feels more refreshed upon waking and daytime alertness is improved. Energy levels are sustained until noon. At home, the patient sleeps from 9:30 pm to 6:15 am and wakes up with an alarm. Snoring: moderate, since .Snorting: yesChoking: noCoughing: noGasping: noGagging: noSighing: noWitnessed apnea: yesTwitching or jerking of leg(s), arm(s), body, head: yesTeeth grinding: noTeeth clenching: noSleeptalking: noSleepwalking: noSleep crying: noBedwetting: noTongue/lip/gum/cheek biting: noSleeping with open mouth: yesSleep paralysis: noHypnagogic hallucinations: noHypnopompic hallucinations: noVivid dreams: yesDifficulty with sleep onset: noDifficulty with sleep maintenance: yesSleep interruptions: for no known reasonsPatient wakes up with: fatigueDaytime cataplexy: noMorning hypersomnolence: yesAfternoon hypersomnolence: yesCaffeine sources in diet: tea 1 glass per week, soda 2 cans per day, chocolate 1 candy bar per week Associated medical and psychiatric conditions:Congestive heart failure: noCoronary artery disease: noMyocardial infarction: noHypertension: noStroke: noBronchial asthma: noChronic obstructive pulmonary disease: noDepression: yesBipolar disorder: noAnxiety: noPanic disorder: noPosttraumatic stress disorder: noAttention deficit and hyperactivity disorder: noObsessive Compulsive disorder: noSchizophrenia: noSchizoaffective disorder: noPersonality disorder: noChronic analgesic use: noChronic sedative/hypnotic use: no EPWORTH SLEEPINESS SCALE (ESS) CHANCE OF DOZING SCORE0 = would never doze1 = slight chance of dozing2 = moderate chance of dozing3 = high chance of dozing SITUATION AND CHANCE OF DOZINGSitting and reading - 2Watching television - 2Sitting inactive in a public place (e.g. a theater or meeting) - 3As a passenger in a car for an hour without a break - 2Lying down to rest in the afternoon when circumstances permit - 3Sitting and talking to someone - 1Sitting quietly after lunch without alcohol - 2In a car, while stopped for a few minutes in the traffic - 0TOTAL SCORE 15Subjectively, patient has a moderate chance of dozing. Vj El MD [address], [address], [place], [address], [employer] 12/07/2023 17:15:47 12/07/2023 text/html OV 10/10/2023: H ere to establish care Present Hx:Asthma? CADAbd discomfortR elbow sugery X3OSA Here to discuss above, he was admitted and d/c from OSH on 06/26/2023 with pneumonia, and now diagnosed with asthma and also an abnormal stress test, is seeing Dr El and Dr Kang SLHVHe also has noted some intermittent abd discomfort, not associated with his diet, no N/V/D/C no blood in stool or urine, but when it does occur it is like a nagging pain OV 12/07/2023: Here for his f/u apt, he is doing well today Mendoza Bedolla MD [address], [address], [place], [address], [employer] 12/11/2023 18:41:57 02/26/2024 text/html Primary care/Ref erring provider: Demarcus Soriano MD Patient is here to go over his shortness of breath management. Initial development of shortness of breath: uration of shortness of breath: 10 monthsCondition of shortness of breath: improvedTiming of shortness of breath: noneFrequency: up to 2 times a dayLimits activities: yesAggravating factors: walking the dog, cutting grassAlleviating factors: rest Modified [employer] [place] (mMRC) Dyspnea Scale - Grade 1Grade 0 I only get breathless with strenuous exercise .Grade 1 I get short of breath when hurrying on the level or walking up a slight hill .Grade 2 I walk slower than people of the same age on the level because of breathlessness or have to stop for breath when walking at my own pace on the level .Grade 3 I stop for breath after walking about 100 yards or after a few minutes on the level .Grade 4 I am too breathless to leave the house or I am breathless when dressing . Treatment history: 06/09/23 aspirin and nebulization, prednisone and albuterol HFA06/19/23 Claritin and Medrol pack Other symptoms:Drooling: noDysarthria: noNeck pain: noOdynophagia: noDysphagia: noWeak mastication: noFacial weakness: noNasal speech: noProtruding tongue: noProductive cough: clearWheezing: noChest tightness: yesOrthopnea: noFrequent throat clearing or swallowing: noPalpitations: noHeartburn: noEdema: no Environmental exposures:Nicotine smoke: noPaint: noDye: noDust mites: yesMold: noDamp basement: noWood burning stove: noAnimal dander: dog and catCockroaches: noPollen: yesArsenic: noAsbestos: noBeryllium: noCadmium: noChromium: noCoal smoke: noDiesel fumes: noNickel: noSilica: noSoot: no During the [facility] diagnostic sleep study on 08/31/23, sleep onset = 9 minutes, REM onset = 73 minutes, AHI = 17, supine AHI = 54, PLMI = 0.0. During the [facility] titration sleep study on 10/23/23, sleep onset = 1 minute, REM onset = 45 minutes, PLMI = 9. At home since 12/04/23, the patient uses a ResMed AirSense 11 autoset unit with heated humidification. The patient does not need the ramp to start low and go up slowly on the pressure. There is no xerostomia in a.m. There is no hose/mask condensation with water. The patient wears a Respironics small DreamWear nasal mask without chin strap. There is no claustrophobia, no nostril/nose bridge irritation, no facial rash, no facial numbness, no nosebleeding. The patient feels more refreshed upon waking and daytime alertness is improved. Energy levels are sustained until noon. At home, the patient sleeps from 9:30 pm to 6:15 am and wakes up with an alarm. Snoring: moderate, since .Snorting: yesChoking: noCoughing: noGasping: noGagging: noSighing: noWitnessed apnea: yesTwitching or jerking of leg(s), arm(s), body, head: yesTeeth grinding: noTeeth clenching: noSleeptalking: noSleepwalking: noSleep crying: noBedwetting: noTongue/lip/gum/cheek biting: noSleeping with open mouth: yesSleep paralysis: noHypnagogic hallucinations: noHypnopompic hallucinations: noVivid dreams: yesDifficulty with sleep onset: noDifficulty with sleep maintenance: yesSleep interruptions: for no known reasonsPatient wakes up with: fatigueDaytime cataplexy: noMorning hypersomnolence: yesAfternoon hypersomnolence: yesCaffeine sources in diet: tea 1 glass per week, soda 2 cans per day, chocolate 1 candy bar per week Associated medical and psychiatric conditions:Congestive heart failure: noCoronary artery disease: noMyocardial infarction: noHypertension: noStroke: noBronchial asthma: noChronic obstructive pulmonary disease: noDepression: yesBipolar disorder: noAnxiety: noPanic disorder: noPosttraumatic stress disorder: noAttention deficit and hyperactivity disorder: noObsessive Compulsive disorder: noSchizophrenia: noSchizoaffective disorder: noPersonality disorder: noChronic analgesic use: noChronic sedative/hypnotic use: no EPWORTH SLEEPINESS SCALE (ESS) CHANCE OF DOZING SCORE0 = would never doze1 = slight chance of dozing2 = moderate chance of dozing3 = high chance of dozing SITUATION AND CHANCE OF DOZINGSitting and reading - 2Watching television - 2Sitting inactive in a public place (e.g. a theater or meeting) - 1As a passenger in a car for an hour without a break - 1Lying down to rest in the afternoon when circumstances permit - 2Sitting and talking to someone - 0Sitting quietly after lunch without alcohol - 1In a car, while stopped for a few minutes in the traffic - 0TOTAL SCORE 9Subjectively, patient has a moderate chance of dozing. Vj El MD [address], [address], [place], [address], [facility] [employer] [facility] 02/26/2024 16:07:42 04/04/2024 text/html OV 10/10/2023: H ere to establish care Present Hx:Asthma? CADAbd discomfortR elbow sugery X3OSA Here to discuss above, he was admitted and d/c from OSH on 06/26/2023 with pneumonia, and now diagnosed with asthma and also an abnormal stress test, is seeing Dr El and Dr Pearl Larry also has noted some intermittent abd discomfort, not associated with his diet, no N/V/D/C no blood in stool or urine, but when it does occur it is like a nagging pain OV 12/07/2023: Here for his f/u apt, he is doing well today OV 04/04/2024: Here for his routine apt, he did do the labs Mendoza Bedolla MD [address], [address], [place], [address], [facility] [employer] [facility] 04/04/2024 17:40:06 04/17/2024 text/html OV 10/10/2023: H ere to establish care Present Hx:Asthma? CADAbd discomfortR elbow sugery X3OSA Here to discuss above, he was admitted and d/c from OSH on 06/26/2023 with pneumonia, and now diagnosed with asthma and also an abnormal stress test, is seeing Dr El and Dr Pearl Larry also has noted some intermittent abd discomfort, not associated with his diet, no N/V/D/C no blood in stool or urine, but when it does occur it is like a nagging pain OV 12/07/2023: Here for his f/u apt, he is doing well today OV 04/04/2024: Here for his routine apt, he did do the labs OV 04/17/2024: Here for his ACVC/o sinus congestion and a non productive cough, no fevers or chills, no chest pain or SOB, no wheezing, did have some nausea but this has resolved now Mendoza Bedolla MD [address], [address], [place], [address], [place] [facility] 04/17/2024 16:55:19
--- OUTSIDE RECORDS SUMMARY | 2024-04-22 17:59 | XMS_ITS | CONTINUITY OF CARE DOCUMENT ---
Author Name sri shavonbeatrice Address Unknown Organization [facility] Address [address] [place] [address] Phone [phone] Care Team Providers Care Track Manager Name Role Phone Harvey Kang MD Unavailable OBED CLARK MD Unavailable [phone] OBED CLARK MD Unavailable [phone] PROBLEMS Condition Status Date Provider Notes Chest pain active Wale Ahmedzai Shortness of breath active Wale Ahdileepzai Cardiology examination active Wale Ahdileepzai Hypertriglyceridemia active Walealec Hebertzai Sleep apnea active Wale Ahmedzai Renal insufficiency, mild active Wale Ahdileep ganesh Elevated glucose active Wale Hebertzai Hyperlipidemia active Harvey Kang MD ENCOUNTERS Date Type Provider Location Encounter Diag nosis - In-person encounter Office Visit Harvey Kang MD [facility] Hyperlipidemia - In-person encounter Office Visit Harvey Kang MD [facility] Cardiology examinationHypertriglyceridemiaSleep apneaRenal insufficiency, mildElevated glucose - In-person encounter Office Visit Harvey Kang MD [facility] - In-person encounter Office [place] [facility] [place] [facility] Chest painShortness of breath VITAL SIGNS Date Observation Value Provider Body Mass Index (Ratio) 36.18 kg/m2 Manuel Kang MD blood pressure, cuff size large Ke rri Gruenenfelder blood pressure, diastolic 84 mm[Hg] Ke rri Gruenenfelder blood pressure, systolic 122 mm[Hg] Ker ri Maria A oxygen saturation, oximetry 96 % Danae Dorcasrutnovache pulse rate 84 /min Danae Arielae lder weight E&M 231 [lb_av] Danae Meiruenenfe [facility] height E&M 67 [in_i] Danae Gruerutnfe [facility] Body Mass Index (Ratio) 34.61 kg/m2 Wale Shaw blood pressure, diastolic 92 mm[Hg] Li nkLogic blood pressure, systolic 130 mm[Hg] Nathaly kLogic blood pressure, cuff size regular Ta bitha Drake blood pressure, diastolic 92 mm[Hg] Ta bitha Drake blood pressure, systolic 130 mm[Hg] Tab itha Drake oxygen saturation, oximetry 96 % Bella Drake pulse rate 87 /min Bella Drake weight E&M 221 [lb_av] Bella Drake height E&M 67 [in_i] Bella Drake respiratory rate E&M 12 /min Bella Drake Body Mass Index (Ratio) 34.77 kg/m2 Manuel Kang MD blood pressure, diastolic 72 mm[Hg] Li nkLogic blood pressure, systolic 126 mm[Hg] Nathaly kLogic blood pressure, cuff size regular Ja rret blood pressure, diastolic 72 mm[Hg] Ja rret blood pressure, systolic 126 mm[Hg] [facility] pulse rate 70 /min Manan oxygen saturation, oximetry 97 % Manan weight E&M 222 [lb_av] Manan respiratory rate E&M 14 /min Manan height E&M 67 [in_i] Manan weight E&M 221 [lb_av] Brandee Mcrae g Body Mass Index (Ratio) 34.61 kg/m2 Wale Colin blood pressure, diastolic 82 mm[Hg] Birdie nkLogic blood pressure, systolic 116 mm[Hg] Nathaly kLogic blood pressure, cuff size regular rret blood pressure, diastolic 82 mm[Hg] rret blood pressure, systolic 116 mm[Hg] [facility] pulse rate 57 /min Manan height E&M 67 [in_i] Manan oxygen saturation, oximetry 96 % Manan respiratory rate E&M 16 /min weight E&M 221 [lb_av] Manan ALLERGIES No Known Drug Allergies RESULTS Date Observation Value Provider Reference Range Interpretation Location hemoglobin A1C, blood, as % of total hemoglobin 5.7 % OF TOTAL HGB [facility] <5.7 High alanine aminotransferase (SGPT), serum 41 1/L [facility] 9-46 Normal aspartate aminotransferase (SGOT), serum 26 1/L [facility] 10-40 Normal alkaline phosphatase, serum 36 1/L [facility] 36-130 Normal bilirubin, serum, total 0.7 mg/dL [facility] 0.2-1.2 Normal albumin/globulin ratio, serum 1.8 (calc) [facility] 1.0-2.5 Normal globulins, serum, total 2.5 G/DL (CALC) [facility] 1.9-3.7 Normal albumin, serum 4.4 g/dL [facility] 3.6-5.1 Normal protein, total, serum 6.9 g/dL [facility] 6.1-8.1 Normal calcium, serum 9.4 mg/dL [facility] 8.6-10.3 Normal carbon dioxide, venous blood 24 mmol/L [facility] 20-32 Normal chloride, serum 104 mmol/L [facility] 98-110 Normal potassium, serum 4.0 mmol/L [facility] 3.5-5.3 Normal sodium, serum 138 mmol/L [facility] 135-146 Normal urea nitrogen/creatinine ratio, serum 12 (calc) [facility] 6-22 Normal creatinine, serum 1.31 mg/dL [facility] 0.60-1.26 High urea nitrogen, blood 16 mg/dL [facility] 7-25 Normal blood glucose, random 87 mg/dL [facility] 65-99 Normal C-reactive protein, by highly sensitive test 2.4 mg/L [facility] <1.0 High LDL Size 214.4 Angstrom [facility] >222.9 Low LDL particle concentration (lipoprotein panel), risk categories correspond to NCEP categories for LDL cholesterol (on a percentile equivalent basis) 1448 nmol/L [facility] <1138 High cholesterol, non-HDL, total 107 MG/DL (CALC) [facility] <130 cholesterol/HDL ratio, serum, percent 5.0 calc [facility] <5.0 High LDL cholesterol, serum 90 MG/DL (CALC) [facility] <100 triglyceride, serum, fasting 82 mg/dL [facility] <150 HDL cholesterol, serum 27 mg/dL [facility] >39 Low cholesterol, serum 134 mg/dL [facility] <200 HISTORY OF MEDICATION USE Medication Status Instructions Dates Provider Indications Com ments cyanocobalamin (vitamin B-12) 1,000 mcg tablet active TAKE 1 TABLET BY MOUTH EVERY DAY Rachel Kohli NP fenofibrate 160 mg tablet active Take 1 tablet by mouth once a day Rachel Kohli NP Vitamin D2 1,250 mcg (50,000 unit) capsule active ONCE A WEEK Rachel Kohli NP fenofibrate nanocrystallized 145 mg tablet completed TAKE 1 TABLET BY MOUTH EVERYDAY - Rachel Kohli NP SOCIAL HISTORY Date Observation Value Provider smoking status Never smoker Rachel diego NP Exercise counseling Yes Rachel Kohli NP smoking status Never smoker Rachel diego NP Exercise counseling Yes Rachel Kohli NP smoking status Never smoker Saroj Alejo banegas smoking status Never smoker Manan iverson INSURANCE PROVIDERS Payer name Policy type / Coverage type [employer] party ID [facility] [id number] ADVANCE DIRECTIVES Name Date DISCUSSED - NO DECISION MADE TREATMENT PLAN Date Name Performer cardiology Harvey peters MD cardiology: O rders: S chedule Followup (*) 9 [id number] Vst-Est Level IV (CPT-26614) C omplex e/m visit add on ([id number]) Harvey Kang MD cardiology Harvey peters MD cardiology: pt states that since last visit, he continues to have intermittent L CP, that does increase with movement/exertion, but denies any specific SOB, dizziness, poalpitations, orthopnea, PND or syncope. pt states that he went to see legal assistant as recommended, but states that legal assistant did not feel that it was lupus, but ? sacroidosis. no further testing was done by rheumatology. CT chest 06/25/23 trace pericardial effusion, mediastinal nodes measuring >8mm stress test: no evidence of ischemia. e cho: EF 64%, normal RV, normal LV, normal LA t lambert: 7 days average 82, max 161, min 40/ VE <0.1%, SVE 0.22% recommend CCS. explained not covered by insurance. $99 out of pocket. Rachel Kohli MEDICAL INVESTIGATOR cardiology:CHOL: 134 (01/29/2024) LDL: 90 MG/DL (CALC) (01/29/2024) HDL: 27 (01/29/2024) T (01/29/2024) C RP: 2.4 mg/L (01/29/2024) LABS: chol 134, HDL 27, Trig 82, LDL 90, LDL particale 1448, LDL small 391, LDL med 369, LDL pattern B, LP (b) 90, HS CRP 2.4, Cr 1.31, A1c 5.7. recommend CCS His updated medication list for this problem includes: Fenofibrate 160 Mg Tablet (Fenofibrate) ..... Take 1 tablet by mouth once a day Rachel Kohli NP cardiology:CHOL: 134 (01/29/2024) LDL: 90 MG/DL (CALC) (01/29/2024) HDL: 27 (01/29/2024) T (01/29/2024) C RP: 2.4 mg/L (01/29/2024) LABS: chol 134, HDL 27, Trig 82, LDL 90, LDL particale 1448, LDL small 391, LDL med 369, LDL pattern B, LP (b) 90, HS CRP 2.4, Cr 1.31, A1c 5.7. recommend CCS recommend His updated medication list for this problem includes: Fenofibrate 160 Mg Tablet (Fenofibrate) ..... Take 1 tablet by mouth once a day Bo Fry Electrophysiology: p t states that since last visit, he continues to have intermittent L CP, that does increase with movement/exertion, but denies any specific SOB, dizziness, poalpitations, orthopnea, PND or syncope. pt states that he went to see legal assistant as recommended, but states that legal assistant did not feel that it was lupus, but ? sacroidosis. no further testing was done by rheumatology. CT chest 06/25/23 trace pericardial effusion, mediastinal nodes measuring >8mm stress test: no evidence of ischemia. e cho: EF 64%, normal RV, normal LV, normal LA t lambert: 7 days average 82, max 161, min 40/ VE <0.1%, SVE 0.22% recommend CCS. explained not covered by insurance. $99 out of pocket. Rachel Kohli NP Electrophysiology:la bs 7/30: Cr 1.35, eGFR 52. encouraged good hydration . will recheck cmp in 3 months Rachel Kohli NP Electrophysiology:pt is awaiting his cpap machine to be delivered and started Rachel Kohli NP Electrophysiology:la bs 7/30: glucose 114, Bun 20, Supervisor Vegetable Farming 1.35, chol 136, trig 233, HDL 23, LDL 65 p t reports that he was not fasting. pt did not feel comfortable starting that med. given that his LDL is 65, recommend cutting out sugar and carbs, increase physical activity would check A1c and cardioIQ labs in 3 months. Rachel Kohli NP Electrophysiology: S tress test was normal, will do 1 week telemonitor HDL is 24, LDL is 69, TRIG is 156, CHOL is 124. LUCAS is positive Saroj Saha Electrophysiology: S tress test was normal, will do 1 week telemonitor HDL is 24, LDL is 69, TRIG is 156, CHOL is 124. LUCAS is positive Saroj Saha Electrophysiology:On set after his viral infection, he did have cough as well during his viral infection, echo was normal, CT chest was unremarkable, will check stress test to rule out cardiac etiology Wale Shaw Electrophysiology:Sx s onset after his recent viral infection and significant cough, echo was overall normal, CT work up was normal, will obtain hscrp and esr, will check stress test to rule out cardiac etiology Wale Shaw Date Name Cardio[facility] Advanced Li pid Panel with Inflammation ([facility]) CT, Coronary Calcium Score COMPREHENSIVE METABO LIC PANEL, W/EGFR HEMOGLOBIN A1c [facility] Advanced Li pid Panel with Inflammation ([facility]) Monitor - Telemetry (Mobile Cardiac) URIC ACID LUCAS LIPID PANEL COMPREHENSIVE METABO LIC PANEL, W/EGFR Stress Routine CRP, high sensitivit y HISTORY OF PROCEDURES Procedure Date Procedure Name Provider Procedure Notes S tatus CT- Coronary CA score Harvey Kang MD completed Complex e/m visit add on Harvey Kang MD completed Schedule Followup Harvey Kang MD [address] Kang completed EKG Harvey Kang MD comp leted EKG Harvey Kang MD comp leted EKG Harvey Kang MD comp leted
--- OUTSIDE RECORDS SUMMARY | 2024-04-22 17:59 | XMS_ITS | Referral Summary ---
Author Organization [facility] Address [address] [place] [address] Care Team Providers Care Municipal Clerk Name Role Phone Ashanti Madison MD Primary Care Provider [phone] Source Comments [facility],non-owned Affiliates and Associated Physician Practices is amultiple site organization consisting of ambulatory clinics and hospital sitesin [place], [place], [place] and [place]. This disclosure is being madepursuant to the Care Everywhere program and may not contain all information available regarding this patient. Last updated 17[employer] [facility] Allergies No known active allergies Medications Be aware that medications may not be up to date on this document. Always verify current medications with the patient. No known medications Active Problems Problem Noted Date Diagnosed Date Shortness of breath 08/28/2023 Overview (08/28/2023): 06/25/2023 CT (CTA) chest - no PE, numerous small mediastinal lymph nodes, trace pericardial effusion. Viral reaction (metapneumovirus RNA +). Chest pain on breathing 08/28/2023 Overview (08/28/2023): Doubt true pleurisy or pericarditis or due to a underlying systemic connective tissue disease including systemic lupus (despite LUCAS - see above comments). Social History Tobacco Use Types Packs/Day Years Used Date Smoking Tobacco: Never Smokeless Tobacco: Never Alcohol Use Standard Drinks/Week Comments Not Currently 0 (1 standard drink = 0.6 oz pur e alcohol) Sex and Gender Information Value Date Recorded Sex Assigned at Not on file Gender Identity Not on file Sexual Orientation Not on file Last Filed Vital Signs Vital Sign Reading Time Taken Comments Blood Pressure 116/82 08/28/2023 3:27 PM CDT Pulse 79 08/28/2023 3:27 PM CDT Temperature 37.6 C (99.7 F) 03/25/2019 10:59 AM SCIENCE WRITER Respiratory Rate 16 08/28/2023 3:27 PM CDT Oxygen Saturation 97% 08/28/2023 3:27 PM CDT Inhaled Oxygen Concentration - - Weight 99.3 kg (219 lb) 08/28/2023 3:27 PM CDT Height 170.2 cm (5' 7 ) 08/28/2023 3:27 PM CDT Body Mass Index 34.3 08/28/2023 3:27 PM CDT Plan of Treatment Not on file Care Teams Municipal Clerk Relationship Specialty Start Date End Date Ashanti Madison MD PCP - General Family Medicine 09/05/18
--- OUTSIDE RECORDS SUMMARY | 2024-04-22 17:59 | XMS_ITS | Referral Summary ---
Author Organization [facility] Address [address] [place] [address] Care Team Providers Care Property Claims Adjuster Name Role Phone Ashanti Duggan MD Primary Care Provider + Allergies No known active allergies Medications meloxicam (MOBIC) 15 mg tablet TAKE 1/2 TABLET PO TWICE DAILY 30 tablet 2 2 Active albuterol HFA (PROVENTIL HFA,VENTOLIN HFA,PROAIR HFA) 90 mcg/actuation inhaler Inhale 1 puff every 6 (six) hours as needed for shortness of breath or wheezing 4 Active Active Problems Problem Noted Date Diagnosed Date Acute hypoxemic respiratory failure 06/25/2023 Assessment & Plan (06/26/2023 12:47 PM CDT): Patient presents with cough, shortness of breath with minimal exertion, generalized weakness, and hypoxemia noted on home pulse oximetry, found to have hypoxemic respiratory failure likely secondary to multiple viral infections and post viral bronchitis. Workup: BMP w/ elevated Cr to 1.32, unknown baseline. CBC wnl. Trop negative x 2. EKG nonspecific. RPP with + metapneumovirus, and CT PE w/o PE, with bronchial wall thickening c/w bronchitis, and numerous mediastinal lymph nodes that are likely reactive. TTE also with LV size that is nora, with LVEF 64% without valvular disease. PASP could not be calculated. - Scheduled duonebs. - Symptomatic management for cough. - Wean O2 as able. - Telemetry w/ SpO2 monitoring. - Consider 6 week f/u imaging for mediastinal lymph nodes. - Has follow up PCP appointment tomorrow, also consider repeat CT chest in 6 weeks to follow up lymph nodes. Elevated serum creatinine 06/25/2023 Assessment & Plan (06/26/2023 12:42 PM CDT): Patient presents with an elevated creatinine of 1.32 with unknown baseline, BMP otherwise WNL. Consideration for pre-renal ISO multiple viral illnesses. - Improvement with follow up BMP. - Encourage PO intake. Right elbow pain 09/22/2021 Overview (09/22/2021): Added automatically from request for surgery [id number] Radial tunnel syndrome 03/09/2021 Overview (03/09/2021): Added automatically from request for surgery [id number] Lateral epicondylitis 06/13/2019 Social History Tobacco Use Types Packs/Day Years Used Date Smoking Tobacco: Never Smokeless Tobacco: Never AUDIT-C Answer Date Recorded Q1: How often do you have a drink containing alc ohol? Monthly or less 10/08/2021 Q2: How many drinks containi ng alcohol do you have on a typical day when you are drinking? 1 or 2 10/08/2021 Q3: How often do you have si x or more drinks on one occasion? Never 10/08/2021 Personal Safety Answer Date Recorded Have you ever been in or are you currently in a harmful physical or emotional relationship or is someone making you feel afraid or unsafe? 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 Gender Identity Not on file Sexual Orientation Not on file Last Filed Vital Signs Vital Sign Reading Time Taken Comments Blood Pressure 138/81 06/26/2023 8:30 AM CDT Pulse 83 06/26/2023 8:30 AM CDT Temperature 36.5 C (97.7 F) 06/26/2023 8:30 AM CDT Respiratory Rate 16 06/26/2023 8:30 AM CDT Oxygen Saturation 96% 06/26/2023 10: 30 AM CDT Inhaled Oxygen Concentration - - Weight 100.4 kg (221 lb 6.4 oz) 06/25/2023 3:40 PM CDT Height 170.2 cm (5' 7 ) 06/25/2023 3:40 PM CDT Body Mass Index 34.68 06/25/2023 3:40 PM CDT Plan of Treatment Not on file Medical Devices Implanted Type Area Fabricator Special Items Device Identifier Shelf Expiration Date Model / Serial / Lot [employer] Avance 1-2mm 70mm Allograft Graft Nerve Sterile [id number] - [id number] Implanted:Qty: 1 on 10/19/2021 by Mikal Johnson MD at [facility] Right: Arm [employer] 12/11/2023 [id number] / / [id number] Insurance [facility] CHOICE PRF PPO DE [facility] BLUE ACCESS DE WORKERS COMPENSATION GENERIC * Guarantor: KATHLEEN GODDARD Account Type Relation to Patient Date of Phone Billing Address Workers Comp Employer Advance Directives For more information, please contact: [phone] * Full Code (Latest Code Status on File) Date Activated Date Inactivated Comments 06/25/2023 3:49 PM 06/26/2023 5:32 PM Care Teams Property Claims Adjuster Relationship Specialty Start Date End Date Ashanti Duggan MD [address] [address] PCP - General Family Medicine 07/15/20
--- OUTSIDE RECORDS SUMMARY | 2024-04-22 17:59 | XMS_ITS | Clinical Summary ---
Author Organization [facility] Address [address] [place] [address] Care Team Providers Care Blending Kettle Tender Name Role Phone Ashanti Duggan MD Primary [...] (09/22/2021): Added automatically from request for surgery [id number] Radial tunnel syndrome 03/09/2021 Overview (03/09/2021): Added automatically from request for surgery [id number] Lateral epicondylitis 06/13/2019 Surgical History Surgery Date Site/Laterality Comments ELBOW SURGERY 03/13/2019 - 03/12/2020 Right VASECTOMY 03/13/2016 - 03/12/2017 OTHER SURGICAL HISTORY 03/13/2021 - 04/12/2021 RIGHT RADIAL TUNNEL RELEASE, RIGHT REVISION LATERAL EPICONDYLITIS Medical History Medical History Date Comments Depression Family History Medical History Relation Name Comments Anesthesia problems Neg Hx Relation Name Status Comments Father Alive Mother Alive Social History Tobacco Use Types Packs/Day Years [...] on file 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 Gender Identity Not on file Sexual Orientation Not on file Obstetrics History Last Filed Vital Signs Vital Sign Reading [...] 06/25/2023 3:40 PM CDT Plan of Treatment Health Maintenance Due Date Last Done Comments Depression Screening 1986 Hepatitis C Screening 1986 Varicella Vaccines (1 of 2 - 13+ 2-dose series) 1999 Hepatitis B Screening 02/12/2004 Regular Well Visit/Exam 18-64 02/12/2004 Influenza Vaccine (#1) 2023 7, 02/01/2012 DTaP/Tdap/Td Vaccine (2 - Td or Tdap) 02/06/2027 02/06/2017 HPV Vaccines Aged Out No longer eligi ble based on patient's age to complete this topic Pneumococcal vaccine <65 Aged Out No longer eligible based on patient's age to complete this topic Medical Devices Implanted Type Area Computer Support Analyst Device Identifier Shelf Expiration Date Model / Serial / Lot [employer] Avance 1-2mm 70mm Allograft Graft Nerve Sterile [id number] - [id number] Implanted:Qty: 1 on 10/19/2021 by Mikal Johnson MD at [facility] Right: Arm [employer] 12/11/2023 [id number] / / [id number] Insurance [employer] BLUE ACCESS [place] [facility] CHOICE [facility] PPO AL [employer] BLUE ACCESS AL WORKERS COMPENSATION [facility] * Guarantor: KATHLEEN GODDARD Account Type Relation to Patient Date of Phone Billing Address Workers Comp Employer Advance Directives For more information, please contact: [phone] * Full Code (Latest Code Status on File) Date Activated Date Inactivated Comments 06/25/2023 3:49 PM 06/26/2023 5:32 PM Care Teams Blending Kettle Tender Relationship Specialty Start Date End Date Ashanti Duggan MD [address] [address] PCP - General Family Medicine 07/15/20
--- OUTSIDE RECORDS SUMMARY | 2024-04-22 17:59 | XMS_ITS | Clinical Summary ---
Author Organization [facility] Address [address] [place] [address] Care Team Providers Care Powder Hand Name Role Phone Ashanti Madison MD Primary Care Provider [phone] Source Comments [facility],non-owned Affiliates and Associated Physician Practices is amultiple site organization consisting of ambulatory clinics and hospital sitesin [place], [place], [place] and [place]. This disclosure is being madepursuant to the Care Everywhere program and may not contain all information available regarding this patient. Last updated [email or web address] Allergies No known active allergies Medications Be [...] lupus (despite LUCAS - see above comments). 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 Respiratory Rate 16 08/28/2023 3:27 PM CDT Oxygen Saturation 97% 08/28/2023 3:27 PM CDT Inhaled Oxygen Concentration - - Weight 99.3 kg (219 lb) 08/28/2023 3:27 PM CDT Height 170.2 cm (5' 7 ) 08/28/2023 3:27 PM CDT Body Mass Index 34.3 08/28/2023 3:27 PM CDT Plan of Treatment Health Maintenance Due Date Last Done Comments HIV SCREENING 2001 HEPATITIS C SCREENING 02/07/2004 DTAP/TDAP/TD VACCINES (1 - Tdap) 2005 HEPATITIS B VACCINE (1 of 3 - 19+ 3-dose series) 2005 COVID-19 VACCINE (1 - 2023-2 5 season) 2023 INFLUENZA VACCINE (#1) 2023 02/06/2017 DEPRESSION SCREENING 03/13/2024 ZOSTER VACCINE (1 of 2) 02/12/2036 HIB VACCINE Aged Out No longer eligi ble based on patient's age to complete this topic HPV VACCINE Aged Out No longer eligi ble based on patient's age to complete this topic MENINGOCOCCAL (Group B) VACCINE Aged Out No longer eligible based on patient's age to complete this topic MENINGOCOCCAL VACCINE Aged Out No kelby dayana eligible based on patient's age to complete this topic PNEUMOCOCCAL VACCINE Aged Out No long er eligible based on patient's age to complete this topic Care Teams Powder Hand Relationship Specialty Start Date End Date Ashanti Madison MD PCP - General Family Medicine 09/05/18
--- OUTSIDE RECORDS SUMMARY | 2024-04-22 18:00 | XMS_ITS | Patient Health Summary ---
Author Organization [facility] Address [address] [place] [address] Care Team Providers Care Animal Caregiver Name Role Phone Ashanti Madison MD Primary Care Provider [phone] Note from [facility],non-owned Affiliates and Associated Physician Practices is amultiple site organization consisting of ambulatory clinics and hospital sitesin [place], [place], [place] and [place]. This disclosure is being madepursuant to the Care Everywhere program and may not contain all information available regarding this patient. Last updated 17.[facility] [employer] Allergies No known active allergies Medications Be aware that medications may not be up to date on this document. Always verify current medications with the patient. No known medications Active Problems Problem Noted Date Diagnosed Date Shortness of breath 08/28/2023 Chest pain on breathing 08/28/2023 Social History Tobacco Use Types Packs/Day Years [...] 37.6 C (99.7 F) 03/25/2019 10:59 AM FISH ICER Respiratory Rate 16 08/28/2023 3:27 PM CDT Oxygen Saturation 97% 08/28/2023 3:27 PM CDT Inhaled Oxygen Concentration - - Weight 99.3 kg (219 lb) 08/28/2023 3:27 PM CDT Height 170.2 cm (5' 7 ) 08/28/2023 3:27 PM CDT Body Mass Index 34.3 08/28/2023 3:27 PM CDT Procedures * INFLUENZA A+B - POINT OF CARE (AMB)(Performed 03/25/2019) Performed for Gastroenteritis * STREP A SCREEN - POINT OF CARE (AMB) STL(Performed 09/05/2018) Performed for Strep throat Results * INFLUENZA A+B - POINT OF CARE (AMB) (03/25/2019) Influenza A Antigen Rapid Negative Negative Influenza B Antigen Rapid Negative Negative Influenza Internal Control present NEGATIVE - POSITIVE Influenza Lot Number [id number] Influenza Expiration Date 06/20/2020 Other NASOPHARYNGEAL SWAB / Unknown 03/25/2019 Rachel Romeo CUTTER OPERATOR HELPER-BUNCH MAKER LAB - PO INT OF CARE ORDERABLES * (ABNORMAL) STREP A SCREEN - POINT OF CARE (AMB) STL (09/05/2018) Strep A Rapid POCT Positive(A) Negative Strep A Internal Control Present Lot # [id number] Expiration Date 02/10/20 Throat ENTIRE THROAT (SURFACE REGION OF NECK) / Unknown 09/05/2018 Abimbola Rose CUTTER OPERATOR HELPER-BUNCH MAKER LAB - POINT OF CA RE ORDERABLES Care Teams Animal Caregiver Relationship Specialty Start Date End Date Ashanti Madison MD PCP - General Family Medicine 09/05/18
[2024-04-22 18:22] VITALS: BP 150/81; PULSE 89; RESP 18; TEMP 36.4; O2SAT 97
--- NOTE | 2024-04-22 18:55 | ED.GENADULT ---
HPI - General Adult General Chief complaint: Unspecified Stated complaint: sharp pain right side, cough Time Seen by Provider: 04/22/24 18:55 Focused HPI: This is a 39 year old male that presents to the ER for right sided rib pain. The pain is sharp in nature. Ongoing over the last several hours. Reports he has been coughing a lot. Reports he is currently taking antibiotics for ear infection. GENERAL: Well-appearing, well-nourished, and in no acute distress. HEAD: Normocephalic, atraumatic. CHEST: Clear to auscultation. ?No respiratory distress. HEART: Regular rate and rhythm.? NEURO: ?Alert and oriented x3. Patient screened in triage and initial orders placed.? ?Additional care and disposition to be based upon?diagnostic testing and treatment. Related Data Allergies Allergy/AdvReac Type Severity Reaction Status Date / Time No Known Allergies Allergy Unverified 04/06/14 14:16 Course Vital Signs Vital signs: Vital Signs Temperature 97.5 F L 04/22/24 18:22 Pulse Rate 89 04/22/24 18:22 Respiratory Rate 18 04/22/24 18:22 Blood Pressure 150/81 H 04/22/24 18:22 Pulse Oximetry 97 04/22/24 18:22 Oxygen Delivery Room Air 04/22/24 18:22 Temperature 97.5 F L 04/22/24 18:22 Pulse Rate 76 04/22/24 23:26 Respiratory Rate 18 04/22/24 23:26 Blood Pressure 131/75 04/22/24 23:26 Pulse Oximetry 97 04/22/24 23:26 Oxygen Delivery Room Air 04/22/24 18:22 Medical Decision Making [facility] Narrative Medical decision making narrative: Patient left after medical screening exam and initial workup and before any further evaluation or management Vital Signs Vital Signs: Vital Signs Temperature 97.5 F L 04/22/24 18:22 Pulse Rate 89 04/22/24 18:22 Respiratory Rate 18 04/22/24 18:22 Blood Pressure 150/81 H 04/22/24 18:22 Pulse Oximetry 97 04/22/24 18:22 Oxygen Delivery Room Air 04/22/24 18:22 Temperature 97.5 F L 04/22/24 18:22 Pulse Rate 76 04/22/24 23:26 Respiratory Rate 18 04/22/24 23:26 Blood Pressure 131/75 04/22/24 23:26 Pulse Oximetry 97 04/22/24 23:26 Oxygen Delivery Room Air 04/22/24 18:22 Imaging Data Radiologist's impression: ITS Impressions Ribs w/Chest X-Ray 04/22/24 19:42 IMPRESSION: No acute displaced right-sided rib fracture is detected. The lungs are clear Discharge Plan Discharge Clinical Impression: Rib pain on right side Patient Disposition: Elopement After Seen by Prov Condition: Stable Patient Language: Montenegrin Follow-up/Referrals: Dariela,Vladislav Rutherford MD [Primary Care Provider] -
[2024-04-22 23:26] VITALS: BP 131/75; PULSE 76; RESP 18; O2SAT 97
--- NOTE | 2024-04-23 02:06 | PC.NURSE ---
no answer at triage
--- OUTSIDE RECORDS SUMMARY | 2024-04-23 03:43 | XMS_ITS | Clinical Summary ---
Author Organization [facility] Address [address] [place] [address] Care Team Providers Care Clinical Documentation Spec Name Role Phone Unavailable Primary Care Provider [...]
--- OUTSIDE RECORDS SUMMARY | 2024-04-23 03:43 | XMS_ITS | Clinical Summary ---
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 Gender Identity Not on file Sexual Orientation [...] this topic Medical Devices Implanted Type Area Civil Rights Representative Device Identifier Shelf Expiration Date Model / Serial / Lot [employer] Avance 1-2mm 70mm Allograft Graft Nerve Sterile [id number] - [id number] Implanted:Qty: 1 on 10/19/2021 by Mikal Johnson MD at [facility] Right: Arm [employer] 12/11/2023 [id number] / / [id number] Insurance [place] [facility] CHOICE [facility] [place] WORKERS COMP[place] [facility] * Guarantor: KATHLEEN GODDARD Account Type Relation to Patient Date of Phone Billing Address Workers Comp Employer Advance Directives For more information, please contact: [phone] * Full Code (Latest Code Status on File) Date Activated Date Inactivated Comments 06/25/2023 3:49 PM 06/26/2023 5:32 PM Care Teams Room Service Supervisor Relationship Specialty Start Date End Date Ashanti Duggan MD [address] [address] PCP - General Family Medicine 07/15/20
--- OUTSIDE RECORDS SUMMARY | 2024-04-23 03:43 | XMS_ITS | Referral Summary ---
Author Organization [facility] [employer] Address [address] [place] [address] Care Team Providers Care Facilities Custodian Name Role Phone Ashanti Madison MD Primary Care Provider [phone] Source Comments [facility] [employer],non-owned Affiliates and Associated Physician Practices is amultiple site organization consisting of ambulatory clinics and hospital sitesin [place], [place], [place] and [place]. This disclosure is being madepursuant to the Care Everywhere program and may not contain all information available regarding this patient. 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
--- OUTSIDE RECORDS SUMMARY | 2024-04-23 03:43 | XMS_ITS | CONTINUITY OF CARE DOCUMENT ---
Author Name sri shavonbeatrice Address Unknown Organization [facility] Address [address] [place] [address] Phone [phone] Care Team Providers Care Embroiderer Hand Name Role Phone Harvey Kang MD Unavailable [phone] OBED CLARK MD Unavailable OBED CLARK MD Unavailable PROBLEMS Condition Status Date Provider Notes Chest pain active Wale Ahmedzai Shortness of breath active Wale Ahdileepzai Cardiology examination active Wale Ahdileepzai Hypertriglyceridemia active Walealec Hani Sleep apnea active Wale Ahmedzai Renal insufficiency, mild active Wale Ahdileep ganesh Elevated glucose active Wale Hebertzai Hyperlipidemia active Harvey Kang MD ENCOUNTERS Date Type Provider Location Encounter Diag nosis - In-person encounter Office Visit Harvey Kang MD [facility] Hyperlipidemia - In-person encounter Office Visit Harvey Kang MD [facility] Cardiology examinationHypertriglyceridemiaSleep apneaRenal insufficiency, mildElevated glucose - In-person encounter Office Visit Harvey Kang MD [place] - In-person encounter Office Visit Harvey [...] lder weight E&M 231 [lb_av] Danae Meiruenenfe [facility] height E&M 67 [in_i] Danae Gruerutnfe [facility] Body Mass Index (Ratio) 34.61 kg/m2 [...] Ja rret blood pressure, systolic 126 mm[Hg] [facility] pulse rate 70 /min Manan oxygen saturation, [...] mm[Hg] rret blood pressure, systolic 116 mm[Hg] [facility] pulse rate 57 /min Manan height E&M [...] Payer name Policy type / Coverage type [place] red constitution party ID [facility] [id number] ADVANCE DIRECTIVES Name Date DISCUSSED - NO DECISION MADE TREATMENT PLAN Date Name Performer cardiology Harvey peters MD cardiology: O rders: S chedule Followup (*) [id number] Vst-Est Level IV (CPT-22118) C omplex e/m visit add on ([id number]) Harvey Kang MD cardiology Harvey peters MD cardiology: pt states that since last visit, he continues to have intermittent L CP, that does increase with movement/exertion, but denies any specific SOB, dizziness, poalpitations, orthopnea, PND or syncope. pt states that he went to see web ui software engineer as recommended, but states that web ui software engineer did not feel that it was lupus, [...] insurance. $99 out of pocket. Rachel Kohli FACILITY ENGINEER cardiology:CHOL: 134 (01/29/2024) LDL: 90 MG/DL (CALC) [...] pt states that he went to see web ui software engineer as recommended, but states that web ui software engineer did not feel that it was lupus, [...] Electrophysiology:la bs 7/30: glucose 114, Bun 20, Powder Loader 1.35, chol 136, trig 233, HDL 23, [...]
--- OUTSIDE RECORDS SUMMARY | 2024-04-23 03:43 | XMS_ITS | Clinical Summary ---
Author Organization [facility] [employer] Address [address] [place] [address] Care Team Providers Care Metal Worker Name Role Phone Ashanti Madison MD Primary Care Provider [phone] Source Comments [facility] [employer],non-owned Affiliates and Associated Physician Practices is amultiple site organization consisting of ambulatory clinics and hospital sitesin [place], [place], [place] and [place]. This disclosure is being madepursuant to the Care Everywhere program and may not contain all information available regarding this patient. Last updated 17.[employer] Allergies No known active allergies Medications Be [...] 37.6 C (99.7 F) 03/25/2019 10:59 AM ERCO MACHINE OPERATOR Respiratory Rate 16 08/28/2023 3:27 PM CDT [...] age to complete this topic Care Teams Metal Worker Relationship Specialty Start Date End Date Ashanti Madison MD PCP - General Family Medicine 09/05/18
--- OUTSIDE RECORDS SUMMARY | 2024-04-23 03:43 | XMS_ITS | Patient Health Summary ---
Author Organization [facility] Address [address] [place] [address] Care Team Providers Care Mine Engineering Manager Name Role Phone Ashanti Madison MD Primary Care Provider [phone] Note from [facility],non-owned Affiliates and Associated Physician Practices is amultiple site organization consisting of ambulatory clinics and hospital sitesin [place], [place] and [place]. This disclosure is being madepursuant to the Care Everywhere program and may not contain all information available regarding this patient. 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 Respiratory Rate 16 08/28/2023 3:27 PM CDT [...] NASOPHARYNGEAL SWAB / Unknown 03/25/2019 Rachel Romeo RN LAB-FLUX CORE WELDER LAB - PO INT OF CARE ORDERABLES * (ABNORMAL) STREP A SCREEN - POINT OF CARE (AMB) STL (09/05/2018) Strep A Rapid POCT Positive(A) Negative Strep A Internal Control Present Lot # [id number] Expiration Date 02/10/20 Throat ENTIRE THROAT (SURFACE REGION OF NECK) / Unknown 09/05/2018 Abimbola Rose RN LAB-FLUX CORE WELDER LAB - POINT OF CA RE ORDERABLES Care Teams Mine Engineering Manager Relationship Specialty Start Date End Date Ashanti Madison MD PCP - General Family Medicine 09/05/18
--- OUTSIDE RECORDS SUMMARY | 2024-04-23 03:43 | XMS_ITS | Referral Summary ---
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 Gender Identity Not on file Sexual Orientation [...] on file Medical Devices Implanted Type Area Staff Field Engineer Device Identifier Shelf Expiration Date Model / Serial / Lot [employer] Avance 1-2mm 70mm Allograft Graft Nerve Sterile [id number] - [id number] Implanted:Qty: 1 on 10/19/2021 by Mikal Johnson MD at [facility] Right: Arm [employer] 12/11/2023 [id number] / / [id number] Insurance [place] [address] [facility] CHOICE [place] [facility] [place] * Guarantor: KATHLEEN GODDARD Account Type Relation to Patient Date of Phone Billing Address Workers Comp Employer Advance Directives For more information, please contact: [phone] * Full Code (Latest Code Status on File) Date Activated Date Inactivated Comments 06/25/2023 3:49 PM 06/26/2023 5:32 PM Care Teams C Unix Developer Relationship Specialty Start Date End Date Ashanti Duggan MD [address] [address] PCP - General Family Medicine 07/15/20
== END 2024-04-23 03:08 | disposition left against medical advice (07) ==
LOC: ANHED 04-23 03:41
PROVIDERS: PCP Internal Medicine
DX: R07.81 Pleurodynia (principal)
CPT/HCPCS: 71046; 71100; 99283

== ENCOUNTER 2024-05-31 15:28 | Outpatient (CLI) | payer BC, SELFPAY ==
--- NOTE | ~2024-05-31 | US_ITS ---
EXAM: RENAL ULTRASOUND HISTORY: CKD stage 3 COMPARISON: None FINDINGS: RIGHT KIDNEY: 9.3 x 5.5 x 5.5 cm. The parenchyma of the right kidney is increased in echogenicity. No hydronephrosis or bulky renal calculi. A single rounded avascular anechoic focus is present within the lower pole of the right kidney measur ing 13 mm in greatest dimension. LEFT KIDNEY: 10.6 x 5.8 x 4.8 cm No hydronephrosis or renal calculi. The parenchyma of the left kidney is increased in echogenicity. BLADDER: Prevoid volume of the bladder measures 80 cc. Postvoid residual measures 17 cc. IMPRESSION: No hydronephrosis or renal calculi. Findings suggesting medical renal disease. Simple cyst within the lower pole right kidney. Post void residual of 17 cc Reviewed, dictated and finalized at location A.
== END 2024-05-31 15:29 | disposition home or self-care (01) ==
LOC: MICIMG 15:29
PROVIDERS: PCP Internal Medicine; Visit Provider Specialist
DX: N18.30 Chronic kidney disease, stage 3 unspecified (principal); N28.1 Cyst of kidney, acquired
CPT/HCPCS: 76770